=== PATIENT | female | born 1970 | race Caucasian/White ===

== ENCOUNTER 2017-06-02 12:23 | Outpatient (CLI) | payer SELFPAY | END 2017-06-02 12:24 | disposition critical access hospital (66) | LOC: EMS 12:23 | PROVIDERS: ATTEND Surgery | DX: R41.82 Altered mental status, unspecified (principal) | CPT/HCPCS: A0425; A0429 ==

== ENCOUNTER 2017-06-02 12:39 | Emergency (ER) | payer SELFPAY ==
[2017-06-02 14:34] LABS: BASOPHILS % (AUTO) 0.7 %; EOSINOPHILS % (AUTO) 0.6 %; HGB - HEMOGLOBIN 13.1 g/dL (12.0-16.0); LYMPHOCYTES # (AUTO) 1.6 10^3/uL (1.5-3.5); LYMPHOCYTES % (AUTO) 23.4 %; MEAN CORPUSCULAR HEMOGLOBIN 29.9 pg (27.0-31.0); MEAN CORPUSCULAR HGB CONC 33.5 g/dL (32.0-36.0); MEAN CORPUSCULAR VOLUME 89.3 fL (81.0-99.0); MEAN PLATELET VOLUME 8.1 fL (7.9-10.8); MONOCYTES # (AUTO) 0.3 10^3/uL (0.0-1.0); MONOCYTES % (AUTO) 4.8 %; NEUTROPHILS # (AUTO) 4.8 10^3/uL (1.5-6.6); NEUTROPHILS % (AUTO) 70.5 %; PLT - PLATELET COUNT 226 10^3/uL (130-450); RED BLOOD COUNT 4.37 10^6/uL (4.20-5.40); RED CELL DISTRIBUTION WIDTH 12.5 % (12.0-15.0); WHITE BLOOD COUNT 6.7 x10^3/uL (4.8-10.8)
[2017-06-02 14:47] LABS: ALBUMIN 4.6 g/dL (3.2-5.5); ALBUMIN/GLOBULIN RATIO 1.8 (1.0-2.2); BILIRUBIN,TOTAL 0.7 mg/dL (0.2-1.0); CALCIUM 9.1 mg/dL (8.5-10.3); CREATININE 0.6 mg/dL (0.4-1.0); TOTAL PROTEIN 7.1 g/dL (6.7-8.2)
[2017-06-02 14:51] LABS: MUDS CUTOFF CONCENTRATIONS CUTOFF CONC BELOW:
[2017-06-02 14:54] LABS: BILIRUBIN,URINE NEGATIVE (NEGATIVE); CLARITY,URINE CLEAR (CLEAR); GLUCOSE, URINE (UA) NEGATIVE (NEGATIVE); KETONES,URINE (UA) TRACE mg/dL (NEGATIVE); LEUKOCYTE ESTERASE, URINE TRACE (NEGATIVE); NITRITE,URINE NEGATIVE (NEGATIVE); OCCULT BLOOD,URINE TRACE-LYSE (NEGATIVE); PROTEIN,URINE NEGATIVE (NEGATIVE); UROBILINOGEN,URINE 0.2 (NORMAL) E.U./dL (NORMAL)
[2017-06-02 15:03] LABS: AMPHETAMINE SCREEN,URINE NEGATIVE (NEGATIVE); BENZODIAZEPINES SCREEN, URINE NEGATIVE (NEGATIVE); COCAINE SCREEN URINE NEGATIVE (NEGATIVE); METHADONE SCREEN, URINE NEGATIVE (NEGATIVE); METHAMPHETAMINES SCREEN, URINE NEGATIVE (NEGATIVE); OPIATE SCREEN, URINE NEGATIVE (NEGATIVE); OXYCODONE SCREEN, URINE NEGATIVE (NEGATIVE); PROPOXYPHENE SCREEN, URINE NEGATIVE (NEGATIVE); TRICYCLIC ANTIDEPRESSANT,URINE NEGATIVE (NEGATIVE)
[2017-06-02 15:07] LABS: RBC,URINE 0-5 /HPF (0-5); SQUAMOUS EPITHELIAL CELL,UR MANY Squamous (<= Few); WBC CLUMPS,URINE PRESENT
[2017-06-02 15:08] LABS: BACTERIA,URINE Few /HPF (None Seen); MUCUS,URINE Marked Strands
[2017-06-02] MEDS ORDERED: GENTAMICIN 0.3% OPHTH DROPS EACHEYE STA (16:32)
--- NOTE | 2017-06-02 18:03 | ED Physician Documentation ---
History of Present Illness - Stated complaint Stated Complaint: GOOPY EYES, AMS - Chief complaint Chief Complaint: General - History obtained from History obtained from: Patient, Friend (significant other) - History of Present Illness Timing: How many weeks ago (2) - Additonal information Additional information: The patient is a 46 year-old female who arrives via ambulance for evaluation of "goopy eyes" and mental status evaluation. History is not able to be reliably obtained from the patient, and is obtained mostly from her significant other of many years. The patient has had purulent drainage from her eyes for about two weeks, increasing over that time. She denies visual impairment. In addition, the patient has exhibited signs of mental deterioration, increasing in severity over the past two years or more. Her male partner states their relationship has become one of him being a steam room attendant. He has been in contact with mental health services who have told him they cannot hospital the patient unless she is gravely disabled or a harm to herself or others, and he states she is not willing to seek voluntary evaluation or treatment. In discussion with the patient, she is unable to respond with focus to any specific question that is asked. She denies any health concerns, and seems unable to comprehend simple questions, responding with unrelated random thoughts. Review of Systems Constitutional: denies: Fever Eyes: reports: Discharge. denies: Decreased vision, Photophobia Ears: denies: Ear pain Nose: denies: Congestion Throat: denies: Sore throat Cardiac: denies: Chest pain / pressure Respiratory: denies: Dyspnea, Cough GI: denies: Abdominal Pain, Nausea, Vomiting : denies: Dysuria Skin: denies: Rash Musculoskeletal: denies: Back pain, Extremity pain Neurologic: reports: Confused. denies: Focal weakness, Numbness, Headache Psychiatric: denies: Suicidal, Homicidal, Hallucinations PD PAST MEDICAL HISTORY - Past Medical History Past Medical History: No Cardiovascular: None Respiratory: None Neuro: None Endocrine/Autoimmune: None Other Past Medical History: Pt not reliable source for PMH - Present Medications Home Medications: Ambulatory Orders Medication Instructions Recorded Confirmed No Known Home Medications [No 06/02/17 06/02/17 Known Home Medications] - Allergies Allergies/Adverse Reactions: Allergies Allergy/AdvReac Type Severity Reaction Status Date / Time Penicillins Allergy Unknown Verified 06/02/17 13:03 - Living Situation Living Situation: reports: With spouse/s.o. Living Arrangement: reports: At home - Social History Does the pt smoke?: No Smoking Status: Never smoker Does the pt drink ETOH?: No Does the pt have substance abuse?: No PD ED PE NORMAL - Vitals Vital signs reviewed: Yes (normal) - General General: Alert and oriented X 3, Well developed/nourished, Other (Calm, well- groomed, but cognitively confused.) - HEENT HEENT: Atraumatic, PERRL, EOMI, Moist mucous membranes, Pharynx benign, Other ( Erythematous conjunctivae bilaterally, with purulent drainage.) - Neck Neck: Supple, no meningeal sign, No adenopathy - Cardiac Cardiac: RRR, No murmur - Respiratory Respiratory: No respiratory distress, Clear bilaterally - Abdomen Abdomen: Soft, Non tender, Other (Scaphoid abdomen.) - Back Back: No CVA TTP - Derm Derm: No rash - Extremities Extremities: No edema, No calf tenderness / cord - Neuro Neuro: Alert and oriented X 3, No motor deficit, No sensory deficit Eye Opening: Spontaneous Motor: Obeys Commands Verbal: Confused GCS Score: 14 PD ED PE EXPANDED - Psych Psych: Other (Responses are unrelated to questions asked, and are random, disorganized thoughts.) Results - Vitals Vitals: Oxygen O2 Source Room air - Labs Labs: Laboratory Tests 06/02/17 06/02/17 06/02/17 14:22 14:22 14:45 WBC 6.7 RBC 4.37 Hgb 13.1 Hct 39.0 MCV 89.3 MCH 29.9 MCHC 33.5 RDW 12.5 Plt Count 226 MPV 8.1 Neut # 4.8 Lymph # 1.6 [place] # 0.3 Eos # 0.0 Baso # 0.0 Absolute Nucleated RBC 0.00 Nucleated RBC % 0.0 Sodium 136 Potassium 3.7 Chloride 106 Carbon Dioxide 22 Anion Gap 8.0 BUN 21 H Creatinine 0.6 Estimated GFR (MDRD) 107 Glucose 98 Calcium 9.1 Total Bilirubin 0.7 AST 19 ALT 19 Alkaline Phosphatase 35 L Total Protein 7.1 Albumin 4.6 Globulin 2.5 Albumin/Globulin Ratio 1.8 Lipase 26 Urine Color YELLOW Urine Clarity CLEAR Urine pH 6.0 Ur Specific [place] 1.025 Urine Protein NEGATIVE Urine Glucose (UA) NEGATIVE Urine Ketones TRACE Urine Occult Blood TRACE-LYSE Urine Nitrite NEGATIVE Urine Bilirubin NEGATIVE Urine Urobilinogen 0.2 (NORMAL) Ur Leukocyte Esterase TRACE H Urine RBC 0-5 Urine WBC 6-10 H Urine WBC Clumps PRESENT Ur Squamous Epith Cells MANY Squamous H Urine Bacteria Few Urine Mucus Marked Strands Ur Microscopic Review INDICATED Urine Culture Comments NOT INDICATED Urine Opiates Screen NEGATIVE Ur Oxycodone Screen NEGATIVE Urine Methadone Screen NEGATIVE Ur Propoxyphene Screen NEGATIVE Ur Barbiturates Screen NEGATIVE Ur Tricyclics Screen NEGATIVE Ur Phencyclidine Scrn NEGATIVE Ur Amphetamine Screen NEGATIVE U Methamphetamines Scrn NEGATIVE U Benzodiazepines Scrn NEGATIVE Urine Cocaine Screen NEGATIVE U Cannabinoids Screen NEGATIVE PD MEDICAL DECISION MAKING - ED course Complexity details: reviewed results, re-evaluated patient, considered differential, d/w patient, d/w family ED course: The patient's presentation is significant for bilateral conjunctivitis, and for mental status impairment, suggestive of early dementia. Her mental status impairment is not acute, but has been gradually progressive over years. She does not appear to be a harm to herself or others, but is approaching grave disability. She was evaluated by the Cash Shortage Investigator, who was unable to convince the patient to seek outpatient care, and who does not consider the patient gravely disabled to the point of needing involuntary hospitalization. There is no medical condition necessitating hospitalization. Her CBC, chemistry panel, urinalysis, and urine tox screen are all normal. Treatment in the Emergency Department included administration of Gentamicin ophthalmic solution in each eye. The remainder of the bottle is dispensed for further treatment at home. I discussed with the patient and her male foreign clerk the diagnosis, recommended primary care follow up, and discussed potentially worrisome signs or symptoms that should prompt reevaluation in the Emergency Department. Departure - Departure Disposition: 01 Home, Self Care Clinical Impression: Mental impairment Bilateral conjunctivitis Qualifiers: Conjunctivitis type: unspecified Qualified Code(s): H10.9 - Unspecified conjunctivitis Condition: Stable Instructions: ED Conjunctivitis Nonspecific Follow-Up: [facility] [Provider Group] [facility] [Provider Group] [facility] [Provider Group] Comments: Instill gentamicin ophthalmic solution 2 drops in each eye 4 times daily for the next 3 days. Follow-up with primary physician. Call to schedule next available appointment. Return to the emergency department if increasing eye drainage or otherwise worsening symptoms. Discharge Date/Time: 06/02/17 18:19
[2017-06-02 18:14] VITALS: BP 122/65
== END 2017-06-02 18:19 | disposition home or self-care (01) ==
LOC: ED 12:39
DX: R41.82 Altered mental status, unspecified (principal); H10.9 Unspecified conjunctivitis
CPT/HCPCS: 36415; 80053; 80306; 81001; 83690; 85025; 99283; A9270; 81003; 87086

== ENCOUNTER 2018-03-08 12:11 | Emergency (ER) | payer SELFPAY ==
--- NOTE | 2018-03-08 12:29 | ED Physician Documentation ---
PD HPI MHE - Stated complaint Stated Complaint: MHE - History obtained from History obtained from: Patient, Police - History of Present Illness Primary symptom: Psychosis Timing - onset: Unknown Pain level max: 0 Pain level now: 0 - Additional information Additional information: Patient is a 47-year-old female who is brought to the emergency department by police on an involuntary mental health hold by the [facility]. She is brought here for medical clearance. She is unable to give any history. She does state that she is not on any medications and has no allergies. She states she was brought here because she is not eating enough food. Review of Systems Unable to obtain: Confused Constitutional: denies: Fever Neurologic: denies: Head injury PD PAST MEDICAL HISTORY - Past Medical History Cardiovascular: None Respiratory: None Endocrine/Autoimmune: None - Present Medications Home Medications: Ambulatory Orders Medication Instructions Recorded Confirmed No Known Home Medications 06/02/17 06/02/17 - Allergies Allergies/Adverse Reactions: Allergies Allergy/AdvReac Type Severity Reaction Status Date / Time Penicillins Allergy Unknown Verified 03/08/18 12:29 - Social History Does the pt smoke?: No Smoking Status: Never smoker Does the pt drink ETOH?: No Does the pt have substance abuse?: No PD ED PE NORMAL - Vitals Vital signs reviewed: Yes - General General: No acute distress, Other (Alert, oriented to person and place. Slow to respond to questions. Seems to be responding to internal stimuli) - HEENT HEENT: Moist mucous membranes, Pharynx benign, Other (R eye injected conjunctiva and yellow drainage.) - Neck Neck: Supple, no meningeal sign - Cardiac Cardiac: RRR, Strong equal pulses - Respiratory Respiratory: No respiratory distress, Clear bilaterally - Abdomen Abdomen: Soft, Non tender, Non distended - Derm Derm: Warm and dry - Extremities Extremities: Normal ROM s pain - Neuro Neuro: No motor deficit, No sensory deficit Results - Vitals Vitals: Vital Signs - 24 hr 03/08/18 12:24 Temperature 37.7 C H Heart Rate 106 H Respiratory 15 Rate Blood Pressure 110/67 O2 Saturation 98 Oxygen O2 Source Room air - EKG (time done) 1319 Rate: Rate (enter#) (92) Rhythm: NSR [place]: Normal Intervals: Normal [place] QRS: Normal Ischemia: Normal ST segments - Labs Labs: Laboratory Tests 03/08/18 03/08/18 03/08/18 12:30 12:30 12:30 WBC 5.2 RBC 4.31 Hgb 13.0 Hct 38.5 MCV 89.3 MCH 30.2 MCHC 33.8 RDW 13.5 Plt Count 238 MPV 8.5 Neut # (Auto) 3.2 Lymph # (Auto) 1.5 [place] # (Auto) 0.4 Eos # (Auto) 0.0 Baso # (Auto) 0.1 Absolute Nucleated RBC 0.00 Nucleated RBC % 0.0 Sodium 139 Potassium 3.5 Chloride 105 Carbon Dioxide 25 Anion Gap 9.0 BUN 26 H Creatinine 0.6 Estimated GFR (MDRD) 106 Glucose 122 H Calcium 9.0 Total Bilirubin 0.7 AST 19 ALT 16 Alkaline Phosphatase 41 L Total Protein 7.4 Albumin 4.7 Globulin 2.7 Albumin/Globulin Ratio 1.7 Lipase 38 TSH 1.37 Urine Color Urine Clarity Urine pH Ur Specific [employer] Urine Protein Urine Glucose (UA) Urine Ketones Urine Occult Blood Urine Nitrite Urine Bilirubin Urine Urobilinogen Ur Leukocyte Esterase Ur Microscopic Review Urine Culture Comments Urine HCG, Qual Salicylates < 6.0 Urine Opiates Screen Ur Oxycodone Screen Urine Methadone Screen Ur Propoxyphene Screen Acetaminophen < 10 L Ur Barbiturates Screen Ur Tricyclics Screen Ur Phencyclidine Scrn Ur Amphetamine Screen U Methamphetamines Scrn U Benzodiazepines Scrn Urine Cocaine Screen U Cannabinoids Screen Ethyl Alcohol < 5.0 03/08/18 03/08/18 14:15 14:15 WBC RBC Hgb Hct MCV MCH MCHC RDW Plt Count MPV Neut # (Auto) Lymph # (Auto) [place] # (Auto) Eos # (Auto) Baso # (Auto) Absolute Nucleated RBC Nucleated RBC % Sodium Potassium Chloride Carbon Dioxide Anion Gap BUN Creatinine Estimated GFR (MDRD) Glucose Calcium Total Bilirubin AST ALT Alkaline Phosphatase Total Protein Albumin Globulin Albumin/Globulin Ratio Lipase TSH Urine Color YELLOW Urine Clarity CLEAR Urine pH >=9.0 H Ur Specific [employer] [place] 1.015 Urine Protein NEGATIVE Urine Glucose (UA) NEGATIVE Urine Ketones TRACE Urine Occult Blood NEGATIVE Urine Nitrite NEGATIVE Urine Bilirubin NEGATIVE Urine Urobilinogen 1 (NORMAL) Ur Leukocyte Esterase NEGATIVE Ur Microscopic Review NOT INDICATED Urine Culture Comments NOT INDICATED Urine HCG, Qual NEGATIVE Salicylates Urine Opiates Screen NEGATIVE Ur Oxycodone Screen NEGATIVE Urine Methadone Screen NEGATIVE Ur Propoxyphene Screen NEGATIVE Acetaminophen Ur Barbiturates Screen NEGATIVE Ur Tricyclics Screen NEGATIVE Ur Phencyclidine Scrn NEGATIVE Ur Amphetamine Screen NEGATIVE U Methamphetamines Scrn NEGATIVE U Benzodiazepines Scrn NEGATIVE Urine Cocaine Screen NEGATIVE U Cannabinoids Screen NEGATIVE Ethyl Alcohol PD MEDICAL DECISION MAKING - ED course Complexity details: reviewed results, re-evaluated patient, considered differential, d/w patient, d/w family, d/w internet marketing consultant ED course: 47-year-old female with psychosis today. Medically clear for psychiatric care. Seen by the [facility] Shirin Byers who detained the patient. She will be sent to Dr. Aye Rico Graciously accepts in transfer. [employer] forms filled out. She will need to be on Polytrim ophthalmic 1 drop in the right eye every 3 hours while awake for 7 days for her bacterial conjunctivitis. This document was made in part using voice recognition software. While efforts are made to proofread this document, sound alike and grammatical errors may occur. Departure - Departure Disposition: 65 Psych Hosp/Unit DC/Xfer Clinical Impression: Bacterial conjunctivitis of right eye Psychosis Qualifiers: Psychosis type: unspecified psychosis type Qualified Code(s): F29 - Unspecified psychosis not due to a substance or known physiological condition Condition: Stable
[2018-03-08 12:43] LABS: BASOPHILS # (AUTO) 0.1 10^3/uL (0.0-0.1); EOSINOPHILS % (AUTO) 0.6 %; LYMPHOCYTES # (AUTO) 1.5 10^3/uL (1.5-3.5); LYMPHOCYTES % (AUTO) 28.6 %; MEAN CORPUSCULAR HEMOGLOBIN 30.2 pg (27.0-31.0); MEAN CORPUSCULAR HGB CONC 33.8 g/dL (32.0-36.0); MEAN CORPUSCULAR VOLUME 89.3 fL (81.0-99.0); MEAN PLATELET VOLUME 8.5 fL (7.9-10.8); MONOCYTES # (AUTO) 0.4 10^3/uL (0.0-1.0); MONOCYTES % (AUTO) 8.3 %; NEUTROPHILS # (AUTO) 3.2 10^3/uL (1.5-6.6); NEUTROPHILS % (AUTO) 61.5 %; PLT - PLATELET COUNT 238 10^3/uL (130-450); RED BLOOD COUNT 4.31 10^6/uL (4.20-5.40); RED CELL DISTRIBUTION WIDTH 13.5 % (12.0-15.0); WHITE BLOOD COUNT 5.2 x10^3/uL (4.8-10.8)
[2018-03-08 12:55] LABS: ACETAMINOPHEN < 10 ug/mL (10-30); ALBUMIN 4.7 g/dL (3.2-5.5); ALBUMIN/GLOBULIN RATIO 1.7 (1.0-2.2); ALKALINE PHOSPHATASE 41 IU/L (42-121); ALT ALANINE AMINOTRANSFERASE 16 IU/L (10-60); AST ASPARTATE AMINOTRANSFERASE 19 IU/L (10-42); BILIRUBIN,TOTAL 0.7 mg/dL (0.2-1.0); BUN - BLOOD UREA NITROGEN 26 mg/dL (6-20); CARBON DIOXIDE - CO2 25 mmol/L (21-32); CHLORIDE 105 mmol/L (101-111); CREATININE 0.6 mg/dL (0.4-1.0); GFR - MDRD 106 (>89); GLUCOSE 122 mg/dL (70-100); LIPASE 38 U/L (22-51); SALICYLATE < 6.0 mg/dL; SODIUM 139 mmol/L (135-145); TOTAL PROTEIN 7.4 g/dL (6.7-8.2)
[2018-03-08] MEDS ORDERED: OLANZapine ODT 5 MG TABLET TL ONE (14:22)
[2018-03-08 14:25] LABS: MUDS CUTOFF CONCENTRATIONS CUTOFF CONC BELOW:
[2018-03-08 14:31] LABS: BILIRUBIN,URINE NEGATIVE (NEGATIVE); GLUCOSE, URINE (UA) NEGATIVE (NEGATIVE); KETONES,URINE (UA) TRACE mg/dL (NEGATIVE); LEUKOCYTE ESTERASE, URINE NEGATIVE (NEGATIVE); NITRITE,URINE NEGATIVE (NEGATIVE); OCCULT BLOOD,URINE NEGATIVE (NEGATIVE); PH,URINE >=9.0 PH (5.0-7.5); PROTEIN,URINE NEGATIVE (NEGATIVE); UROBILINOGEN,URINE 1 (NORMAL) E.U./dL (NORMAL)
[2018-03-08 14:40] LABS: AMPHETAMINE SCREEN,URINE NEGATIVE (NEGATIVE); BENZODIAZEPINES SCREEN, URINE NEGATIVE (NEGATIVE); COCAINE SCREEN URINE NEGATIVE (NEGATIVE); METHADONE SCREEN, URINE NEGATIVE (NEGATIVE); METHAMPHETAMINES SCREEN, URINE NEGATIVE (NEGATIVE); OPIATE SCREEN, URINE NEGATIVE (NEGATIVE); OXYCODONE SCREEN, URINE NEGATIVE (NEGATIVE); PROPOXYPHENE SCREEN, URINE NEGATIVE (NEGATIVE); TRICYCLIC ANTIDEPRESSANT,URINE NEGATIVE (NEGATIVE)
[2018-03-08 14:43] LABS: CLARITY,URINE CLEAR (CLEAR); HCG UR QUAL NEGATIVE
[2018-03-08] MEDS ORDERED: POLYMYXIN B/TRIMETH OPHTH DROPS RIGHTEYE STA (15:14)
[2018-03-08] MEDS ORDERED: OLANZapine 10 MG VIAL IM STA (17:03)
[2018-03-08 19:17] VITALS: BP 139/80
== END 2018-03-08 19:30 ==
LOC: EDUNIT# → ED 12:11
DX: Z04.6 Encounter for general psychiatric examination, requested by authority (principal); F29 Unspecified psychosis not due to a substance or known physiological condition; H10.89 Other conjunctivitis; B96.89 Other specified bacterial agents as the cause of diseases classified elsewhere
CPT/HCPCS: 36415; 80053; 80306; 80307; 80320; 80329; 81003; 81025; 83690; 84443; 85025; 93005; 99283; 99284; A9270; 81001; 87086

== ENCOUNTER 2019-04-27 06:46 | Outpatient (CLI) | payer SELFPAY | END 2019-04-27 06:47 | disposition critical access hospital (66) | LOC: EMS 06:46 | PROVIDERS: ATTEND Surgery | DX: R46.89 Other symptoms and signs involving appearance and behavior (principal); R41.82 Altered mental status, unspecified | CPT/HCPCS: A0425; A0429 ==

== ENCOUNTER 2019-04-27 07:01 | Emergency (ER) | payer SELFPAY ==
[2019-04-27] MEDS ORDERED: NEOMYCIN/POLYMYX/DEXAMETH OPHTH DROPS 5 ML EACHEYE STA (07:19)
--- NOTE | 2019-04-27 07:23 | ED Physician Documentation ---
PD HPI MHE - Stated complaint Stated Complaint: MHE - Chief complaint Chief Complaint: MHE - History obtained from History obtained from: Patient, EMS, Other ([facility]) - History of Present Illness Primary symptom: Psychosis, Off meds Timing - onset: How many years ago (1) Contributing factors: Off meds Similar symptoms before: Diagnosis (schizoeffective) Recently seen: Not recently seen - Additional information Additional information: 48-year-old female with history of schizoaffective disorder has been off of her meds for about 1 year and she has had increasing psychosis and multiple telephone calls to law enforcement especially over the past 2 weeks. The gallo sampson is brought to the hospital this morning by medics and restraint.She does have some conjunctival irritation that is been present for some time. She indicates she was planning to pick pack worker her medications today. Review of Systems Constitutional: denies: Fever Eyes: reports: Discharge, Irritation. denies: Decreased vision Ears: denies: Ear pain Nose: denies: Rhinorrhea / runny nose, Congestion Throat: denies: Sore throat Cardiac: denies: Chest pain / pressure, Palpitations Respiratory: denies: Dyspnea, Cough GI: denies: Abdominal Pain, Nausea, Vomiting : denies: Dysuria, Frequency PD PAST MEDICAL HISTORY - Past Medical History Cardiovascular: None Respiratory: None Endocrine/Autoimmune: None - Present Medications Home Medications: Ambulatory Orders Medication Instructions Recorded Confirmed No Known Home Medications 06/02/17 06/02/17 - Allergies Allergies/Adverse Reactions: Allergies Allergy/AdvReac Type Severity Reaction Status Date / Time Penicillins Allergy Unknown Verified 03/08/18 12:29 - Social History Does the pt smoke?: No Smoking Status: Never smoker Does the pt drink ETOH?: No Does the pt have substance abuse?: No PD ED PE NORMAL - Vitals Vital signs reviewed: Yes (normal ) - General General: No acute distress, Well developed/nourished, Other (The patient has a broad smile and is interactive with pressured speech that is tangential and circumferential. ) - HEENT HEENT: Atraumatic, PERRL, EOMI, Ears normal, Other (mucuos membranes are dry. There is scleral injection and conjunctival exudate and inflamation consistent with acute bacterial conjunctivitis. ) - Neck Neck: Supple, no meningeal sign, No bony TTP - Cardiac Cardiac: RRR, No murmur - Respiratory Respiratory: No respiratory distress, Clear bilaterally - Abdomen Abdomen: Soft, Non tender - Back Back: No CVA TTP, No spinal TTP - Derm Derm: Normal color, Warm and dry, No rash - Extremities Extremities: No deformity, No edema, No calf tenderness / cord - Neuro Neuro: slab conditioner supervisor 2-12 intact, No motor deficit, Normal speech Eye Opening: Spontaneous Motor: Obeys Commands Verbal: Oriented GCS Score: 15 - Psych Psych: Normal mood, Normal affect Results - Vitals Vitals: Vital Signs - 24 hr 04/27/19 04/27/19 04/27/19 07:02 10:52 11:08 Temperature 37.3 C Heart Rate 89 Respiratory 18 Rate Blood Pressure 113/49 L 115/49 L 111/58 L O2 Saturation 100 04/27/19 14:20 Temperature 36.7 C Heart Rate 101 H Respiratory 15 Rate Blood Pressure 138/72 H O2 Saturation 100 Oxygen O2 Source Room air - EKG (time done) 1004 Rate: Rate (enter#) (90) Rhythm: NSR Compare to prior EKG: Unchanged from prior EKG (SPT 03-08-2018 no sig change) Computer interpretation: Agree with computer - Labs Labs: Laboratory Tests 04/27/19 04/27/19 04/27/19 07:26 07:26 07:26 WBC 4.9 RBC 4.28 Hgb 12.7 Hct 38.9 MCV 90.9 MCH 29.7 MCHC 32.6 RDW 12.1 Plt Count 236 MPV 10.0 Neut # (Auto) 2.9 Lymph # (Auto) 1.4 L [place] # (Auto) 0.4 Eos # (Auto) 0.1 Baso # (Auto) 0.0 Absolute Nucleated RBC 0.00 Nucleated RBC % 0.0 Sodium 143 Potassium 3.7 Chloride 107 Carbon Dioxide 26 Anion Gap 10.0 BUN 22 H Creatinine 0.7 Estimated GFR (MDRD) 89 Glucose 114 H Calcium 9.5 Total Bilirubin 0.6 AST 21 ALT 19 Alkaline Phosphatase 38 L Total Protein 7.3 Albumin 4.7 Globulin 2.6 Albumin/Globulin Ratio 1.8 Lipase 56 H TSH 1.40 Urine Color Urine Clarity Urine pH Ur Specific [place] Urine Protein Urine Glucose (UA) Urine Ketones Urine Occult Blood Urine Nitrite Urine Bilirubin Urine Urobilinogen Ur Leukocyte Esterase Ur Microscopic Review Urine Culture Comments Urine HCG, Qual Urine Opiates Screen Ur Oxycodone Screen Urine Methadone Screen Ur Propoxyphene Screen Acetaminophen < 10 L Ur Barbiturates Screen Ur Tricyclics Screen Ur Phencyclidine Scrn Ur Amphetamine Screen U Methamphetamines Scrn U Benzodiazepines Scrn Urine Cocaine Screen U Cannabinoids Screen Ethyl Alcohol < 5.0 04/27/19 04/27/19 08:00 08:00 WBC RBC Hgb Hct MCV MCH MCHC RDW Plt Count MPV Neut # (Auto) Lymph # (Auto) [place] # (Auto) Eos # (Auto) Baso # (Auto) Absolute Nucleated RBC Nucleated RBC % Sodium Potassium Chloride Carbon Dioxide Anion Gap BUN Creatinine Estimated GFR (MDRD) Glucose Calcium Total Bilirubin AST ALT Alkaline Phosphatase Total Protein Albumin Globulin Albumin/Globulin Ratio Lipase TSH Urine Color YELLOW Urine Clarity CLEAR Urine pH 6.5 Ur Specific [place] 1.025 Urine Protein NEGATIVE Urine Glucose (UA) NEGATIVE Urine Ketones NEGATIVE Urine Occult Blood TRACE-LYSE Urine Nitrite NEGATIVE Urine Bilirubin NEGATIVE Urine Urobilinogen 0.2 (NORMAL) Ur Leukocyte Esterase NEGATIVE Ur Microscopic Review NOT INDICATED Urine Culture Comments NOT INDICATED Urine HCG, Qual NEGATIVE Urine Opiates Screen NEGATIVE Ur Oxycodone Screen NEGATIVE Urine Methadone Screen NEGATIVE Ur Propoxyphene Screen NEGATIVE Acetaminophen Ur Barbiturates Screen NEGATIVE Ur Tricyclics Screen NEGATIVE Ur Phencyclidine Scrn NEGATIVE Ur Amphetamine Screen NEGATIVE U Methamphetamines Scrn NEGATIVE U Benzodiazepines Scrn NEGATIVE Urine Cocaine Screen NEGATIVE U Cannabinoids Screen NEGATIVE Ethyl Alcohol PD MEDICAL DECISION MAKING - ED course Complexity details: reviewed old records, reviewed results, re-evaluated patient, considered differential, d/w patient ED course: 48 y/o female with obvious psychosis is accepted at [facility] and she is administered zyprexa 5mg TL prior to travel. Departure - Departure Disposition: 65 Psych Hosp/Unit DC/Xfer Clinical Impression: Psychosis Qualifiers: Psychosis type: schizoaffective disorder Schizoaffective disorder type: bipolar Qualified Code(s): F25.0 - Schizoaffective disorder, bipolar type Condition: Stable Discharge Date/Time: 04/27/19 14:40
[2019-04-27 07:31] LABS: BASOPHILS % (AUTO) 0.8 %; EOSINOPHILS # (AUTO) 0.1 10^3/uL (0.0-0.7); HGB - HEMOGLOBIN 12.7 g/dL (12.0-16.0); LYMPHOCYTES # (AUTO) 1.4 10^3/uL (1.5-3.5); LYMPHOCYTES % (AUTO) 29.4 %; MEAN CORPUSCULAR HEMOGLOBIN 29.7 pg (27.0-31.0); MEAN CORPUSCULAR HGB CONC 32.6 g/dL (32.0-36.0); MEAN CORPUSCULAR VOLUME 90.9 fL (81.0-99.0); MONOCYTES # (AUTO) 0.4 10^3/uL (0.0-1.0); MONOCYTES % (AUTO) 7.8 %; NEUTROPHILS # (AUTO) 2.9 10^3/uL (1.5-6.6); NEUTROPHILS % (AUTO) 59.6 %; PLT - PLATELET COUNT 236 10^3/uL (130-450); RED BLOOD COUNT 4.28 10^6/uL (4.20-5.40); RED CELL DISTRIBUTION WIDTH 12.1 % (12.0-15.0); WHITE BLOOD COUNT 4.9 x10^3/uL (4.8-10.8)
[2019-04-27 07:48] LABS: ACETAMINOPHEN < 10 ug/mL (10-30); ALBUMIN 4.7 g/dL (3.2-5.5); ALBUMIN/GLOBULIN RATIO 1.8 (1.0-2.2); ALKALINE PHOSPHATASE 38 IU/L (42-121); ALT ALANINE AMINOTRANSFERASE 19 IU/L (10-60); AST ASPARTATE AMINOTRANSFERASE 21 IU/L (10-42); BILIRUBIN,TOTAL 0.6 mg/dL (0.2-1.0); BUN - BLOOD UREA NITROGEN 22 mg/dL (6-20); CALCIUM 9.5 mg/dL (8.5-10.3); CARBON DIOXIDE - CO2 26 mmol/L (21-32); CHLORIDE 107 mmol/L (101-111); CREATININE 0.7 mg/dL (0.4-1.0); GFR - MDRD 89 (>89); GLUCOSE 114 mg/dL (70-100); LIPASE 56 U/L (22-51); SODIUM 143 mmol/L (135-145); TOTAL PROTEIN 7.3 g/dL (6.7-8.2)
[2019-04-27 08:03] LABS: MUDS CUTOFF CONCENTRATIONS CUTOFF CONC BELOW:
[2019-04-27 08:06] LABS: BILIRUBIN,URINE NEGATIVE (NEGATIVE); CLARITY,URINE CLEAR (CLEAR); GLUCOSE, URINE (UA) NEGATIVE (NEGATIVE); KETONES,URINE (UA) NEGATIVE (NEGATIVE); LEUKOCYTE ESTERASE, URINE NEGATIVE (NEGATIVE); NITRITE,URINE NEGATIVE (NEGATIVE); OCCULT BLOOD,URINE TRACE-LYSE (NEGATIVE); PH,URINE 6.5 PH (5.0-7.5); PROTEIN,URINE NEGATIVE (NEGATIVE); UROBILINOGEN,URINE 0.2 (NORMAL) E.U./dL (NORMAL)
[2019-04-27 08:07] LABS: HCG UR QUAL NEGATIVE
[2019-04-27 08:15] LABS: AMPHETAMINE SCREEN,URINE NEGATIVE (NEGATIVE); BENZODIAZEPINES SCREEN, URINE NEGATIVE (NEGATIVE); COCAINE SCREEN URINE NEGATIVE (NEGATIVE); METHADONE SCREEN, URINE NEGATIVE (NEGATIVE); METHAMPHETAMINES SCREEN, URINE NEGATIVE (NEGATIVE); OPIATE SCREEN, URINE NEGATIVE (NEGATIVE); OXYCODONE SCREEN, URINE NEGATIVE (NEGATIVE); TRICYCLIC ANTIDEPRESSANT,URINE NEGATIVE (NEGATIVE)
[2019-04-27 08:16] LABS: PROPOXYPHENE SCREEN, URINE NEGATIVE (NEGATIVE)
[2019-04-27 14:21] VITALS: BP 138/72
[2019-04-27] MEDS ORDERED: OLANZapine ODT 5 MG TABLET TL ONE (14:28)
== END 2019-04-27 14:40 ==
LOC: EDUNIT# → ED 07:01
DX: F25.0 Schizoaffective disorder, bipolar type (principal)
CPT/HCPCS: 36415; 80320; 81003; 81025; 83690; 93005; 99284; 99285; J3490; 80053; 80306; 80307; 81001; 84443; 85025; 87086

== ENCOUNTER 2019-08-13 21:52 | Outpatient (CLI) | payer SELFPAY | END 2019-08-13 23:59 | disposition critical access hospital (66) | LOC: EMS 21:52 | PROVIDERS: ATTEND Surgery | DX: R46.89 Other symptoms and signs involving appearance and behavior (principal) | CPT/HCPCS: A0425; A0429 ==

== ENCOUNTER 2019-08-13 22:17 | Emergency (ER) | payer SELFPAY ==
--- NOTE | 2019-08-13 23:29 | ED Physician Documentation ---
PD HPI MHE - Stated complaint Stated Complaint: MHE - Chief complaint Chief Complaint: Heent - History obtained from History obtained from: EMS, Police - History of Present Illness Primary symptom: Aggressive behavior Timing - onset: Today (ton) - Additional information Additional information: medics state patient was in front of a place of [place] (veterinary clinic), lying on ground, and was asked to move. patient became belligerent with police to the point that they called EMS and restraints were used for patients and others safety. patient apparently would not talk to EMS. Police filled out a form indicating they deemed her gravely disabled and required a mental health evaluation by a mental health professional. patient has been here three previous times, with previous visits resulting in transfer to psychiatric care facilities. PLEASE NOTE that patient would not talk to me during HPI, ROS and thus I could not gather this information from patient. she was cooperative for exam. she was no longer in restraints when I evaluated her and it is not clear to me who untethered her restraints. Review of Systems Unable to obtain: Uncooperative PD PAST MEDICAL HISTORY - Past Medical History Cardiovascular: None Respiratory: None Endocrine/Autoimmune: None - Present Medications Home Medications: Ambulatory Orders Medication Instructions Recorded Confirmed No Known Home Medications 06/02/17 06/02/17 - Allergies Allergies/Adverse Reactions: Allergies Allergy/AdvReac Type Severity Reaction Status Date / Time Penicillins Allergy Unknown Verified 03/08/18 12:29 - Social History Does the pt smoke?: No Smoking Status: Never smoker Does the pt drink ETOH?: No Does the pt have substance abuse?: No PD ED PE NORMAL - Vitals Vital signs reviewed: Yes - General General: No acute distress, Other (cannot assess orientation, as she will not talk to me) - HEENT HEENT: PERRL, EOMI, Other (extensive, thick, yellow purulence bilaterally with crusting) - Neck Neck: Supple, no meningeal sign - Cardiac Cardiac: RRR, No murmur - Respiratory Respiratory: No respiratory distress, Clear bilaterally - Abdomen Abdomen: Soft, Non tender - Derm Derm: Normal color, Warm and dry - Extremities Extremities: No tenderness to palpate, Normal ROM s pain, No edema PD ED PE EXPANDED - General General: Disheveled, poorly kept - Psych Psych: Poor eye contact, Non verbal Results - Vitals Vitals: Oxygen O2 Source Room air PD MEDICAL DECISION MAKING - ED course Complexity details: reviewed old records, re-evaluated patient, considered differential ED course: brought in by procurement officer who has signed document in which he opines she is gravely disabled. patient refusing blood work. RN contacted [facility] for MHP consult, I was told by ED RN that they would call back regarding whether they would dispatch without blood work. Patient subsequently left ED before evaluation was complete. I was then made aware that ED RN had heard back from [facility] and they would not dispatch until 6 AM but that they opined patient could not be held in ED. I was also then made aware that ED RN had given patient her clothes and possessions back to patient. Departure - Departure Disposition: 07 Against Medical Advice Clinical Impression: Conjunctivitis Qualifiers: Conjunctivitis type: acute Acute conjunctivitis type: bacterial Laterality: bilateral Qualified Code(s): H10.33 - Unspecified acute conjunctivitis, bilateral Condition: Stable Discharge Date/Time: 08/14/19 05:48
[2019-08-14 04:19] VITALS: BP 113/62
== END 2019-08-14 05:48 | disposition left against medical advice (07) ==
LOC: EDUNIT# → EDBD → ED 22:17
DX: H10.33 Unspecified acute conjunctivitis, bilateral (principal); Z53.20 Procedure and treatment not carried out because of patient's decision for unspecified reasons
CPT/HCPCS: 80048; 80307; 80320; 80329; 84443; 85025; 99281; 99283

== ENCOUNTER 2019-08-15 15:40 | Emergency (ER) | payer SELFPAY ==
[2019-08-15 16:02] LABS: BASOPHILS % (AUTO) 0.5 %; EOSINOPHILS # (AUTO) 0.2 10^3/uL (0.0-0.7); HGB - HEMOGLOBIN 13.1 g/dL (12.0-16.0); LYMPHOCYTES # (AUTO) 2.3 10^3/uL (1.5-3.5); LYMPHOCYTES % (AUTO) 38.1 %; MEAN CORPUSCULAR HGB CONC 32.8 g/dL (32.0-36.0); MEAN CORPUSCULAR VOLUME 91.3 fL (81.0-99.0); MEAN PLATELET VOLUME 9.9 fL (7.9-10.8); MONOCYTES # (AUTO) 0.6 10^3/uL (0.0-1.0); MONOCYTES % (AUTO) 9.3 %; NEUTROPHILS % (AUTO) 48.9 %; PLT - PLATELET COUNT 256 10^3/uL (130-450); RED BLOOD COUNT 4.37 10^6/uL (4.20-5.40); RED CELL DISTRIBUTION WIDTH 12.4 % (12.0-15.0)
--- NOTE | 2019-08-15 16:11 | ED Physician Documentation ---
PD HPI MHE - Stated complaint Stated Complaint: MHE - Chief complaint Chief Complaint: MHE - History obtained from History obtained from: Police - History of Present Illness Primary symptom: Psychosis Timing - onset: Unknown Pain level max: 0 Pain level now: 0 - Additional information Additional information: Patient refuses to answer any questions. She is staring straight ahead. Not talking per police she was placed on an involuntary hold by the [facility] Pat Byers, no other history is available. Patient was apparently seen here yesterday for same. She left the emergency department. FABI was contacted twice during her emergency department stay and refused to dispatch the DCR both times. Review of Systems Unable to obtain: Uncooperative PD PAST MEDICAL HISTORY - Past Medical History Cardiovascular: None Respiratory: None Endocrine/Autoimmune: None - Present Medications Home Medications: Ambulatory Orders Medication Instructions Recorded Confirmed No Known Home Medications 06/02/17 06/02/17 - Allergies Allergies/Adverse Reactions: Allergies Allergy/AdvReac Type Severity Reaction Status Date / Time Penicillins Allergy Unknown Verified 03/08/18 12:29 - Social History Does the pt smoke?: No Smoking Status: Never smoker Does the pt drink ETOH?: No Does the pt have substance abuse?: No PD ED PE NORMAL - Vitals Vital signs reviewed: Yes - General General: No acute distress, Other (Thin female) - HEENT HEENT: Other (Drainage from the bilateral eyes with erythema.) - Neck Neck: Supple, no meningeal sign - Cardiac Cardiac: RRR - Respiratory Respiratory: No respiratory distress, Clear bilaterally - Abdomen Abdomen: Soft, Non tender, Non distended - Derm Derm: Warm and dry - Extremities Extremities: No edema - Neuro Neuro: Other (Alert, not responding to questions) Results - Vitals Vitals: Vital Signs - 24 hr 08/15/19 15:40 Temperature 36.2 C L Heart Rate 89 Respiratory 14 Rate Blood Pressure 144/76 H O2 Saturation 99 Oxygen O2 Source Room air - EKG (time done) 1601 Rate: Rate (enter#) (73) Rhythm: NSR [place]: Normal Intervals: Normal [place] QRS: Normal Ischemia: Normal ST segments - Labs Labs: Laboratory Tests 08/15/19 08/15/19 08/15/19 15:56 15:56 15:56 WBC 6.0 RBC 4.37 Hgb 13.1 Hct 39.9 MCV 91.3 MCH 30.0 MCHC 32.8 RDW 12.4 Plt Count 256 MPV 9.9 Neut # (Auto) 3.0 Lymph # (Auto) 2.3 [place] # (Auto) 0.6 Eos # (Auto) 0.2 Baso # (Auto) 0.0 Absolute Nucleated RBC 0.00 Nucleated RBC % 0.0 Sodium 138 Potassium 3.2 L Chloride 106 Carbon Dioxide 27 Anion Gap 5.0 L BUN 27 H Creatinine 0.7 Estimated GFR (MDRD) 88 L Glucose 129 H Calcium 8.7 Total Bilirubin 0.7 AST 19 ALT 22 Alkaline Phosphatase 42 Total Protein 7.1 Albumin 4.4 Globulin 2.7 Albumin/Globulin Ratio 1.6 Lipase 39 TSH 0.81 Urine Color Urine Clarity Urine pH Ur Specific [place] Urine Protein Urine Glucose (UA) Urine Ketones Urine Occult Blood Urine Nitrite Urine Bilirubin Urine Urobilinogen Ur Leukocyte Esterase Ur Microscopic Review Urine Culture Comments Urine HCG, Qual Salicylates < 6.0 Urine Opiates Screen Ur Oxycodone Screen Urine Methadone Screen Ur Propoxyphene Screen Acetaminophen < 10 L Ur Barbiturates Screen Ur Tricyclics Screen Ur Phencyclidine Scrn Ur Amphetamine Screen U Methamphetamines Scrn U Benzodiazepines Scrn Urine Cocaine Screen U Cannabinoids Screen Ethyl Alcohol < 5.0 08/15/19 08/15/19 16:28 16:28 WBC RBC Hgb Hct MCV MCH MCHC RDW Plt Count MPV Neut # (Auto) Lymph # (Auto) [place] # (Auto) Eos # (Auto) Baso # (Auto) Absolute Nucleated RBC Nucleated RBC % Sodium Potassium Chloride Carbon Dioxide Anion Gap BUN Creatinine Estimated GFR (MDRD) Glucose Calcium Total Bilirubin AST ALT Alkaline Phosphatase Total Protein Albumin Globulin Albumin/Globulin Ratio Lipase TSH Urine Color YELLOW Urine Clarity CLEAR Urine pH 6.0 Ur Specific [place] 1.025 Urine Protein NEGATIVE Urine Glucose (UA) NEGATIVE Urine Ketones NEGATIVE Urine Occult Blood TRACE-INTA Urine Nitrite NEGATIVE Urine Bilirubin NEGATIVE Urine Urobilinogen 0.2 (NORMAL) Ur Leukocyte Esterase NEGATIVE Ur Microscopic Review NOT INDICATED Urine Culture Comments NOT INDICATED Urine HCG, Qual NEGATIVE Salicylates Urine Opiates Screen NEGATIVE Ur Oxycodone Screen NEGATIVE Urine Methadone Screen NEGATIVE Ur Propoxyphene Screen NEGATIVE Acetaminophen Ur Barbiturates Screen NEGATIVE Ur Tricyclics Screen NEGATIVE Ur Phencyclidine Scrn NEGATIVE Ur Amphetamine Screen NEGATIVE U Methamphetamines Scrn NEGATIVE U Benzodiazepines Scrn NEGATIVE Urine Cocaine Screen NEGATIVE U Cannabinoids Screen NEGATIVE Ethyl Alcohol PD MEDICAL DECISION MAKING - ED course Complexity details: reviewed old records, reviewed results, re-evaluated imelda aguilar, considered differential, d/w patient, d/w field sales consultant ED course: Patient appears to be in an acutely psychotic state. Appears to be mostly catatonic at this time. Patient is medically clear for psychiatric care. Her symptoms appear consistent with schizophrenia. Unclear if this is a formal diagnosis in her past or not. 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 She remains mostly mute. She does not resist movement of her arms and limbs. Does not resist invasive procedures such as an IV start or catheterization. She stares blankly into space. I spoke with the DCR, Pat who evaluated the patient and will place the patient on an involuntary hold. Pat states that the roommate called her and states that the patient has not been showering for the past month, stopped taking all of her medications approximately a month ago and is wearing a metal salad bowl on her head. Patient was also started on Polytrim ophthalmic for her bilateral conjunctivitis. Recommend that she continue this for 7 days. This document was made in part using voice recognition software. While efforts are made to proofread this document, sound alike and grammatical errors may occu r Patient signed out to the oncoming emergency department physician awaiting final disposition. Departure - Departure Clinical Impression: Psychosis Qualifiers: Psychosis type: schizophrenia Schizophrenia type: catatonic schizophrenia Qualified Code(s): F20.2 - Catatonic schizophrenia Bilateral conjunctivitis Qualifiers: Conjunctivitis type: acute Acute conjunctivitis type: bacterial Qualified Code(s): H10.33 - Unspecified acute conjunctivitis, bilateral Condition: Stable
[2019-08-15 16:18] LABS: ACETAMINOPHEN < 10 ug/mL (10-30); ALBUMIN 4.4 g/dL (3.2-5.5); ALBUMIN/GLOBULIN RATIO 1.6 (1.0-2.2); ALKALINE PHOSPHATASE 42 IU/L (42-121); ALT ALANINE AMINOTRANSFERASE 22 IU/L (10-60); AST ASPARTATE AMINOTRANSFERASE 19 IU/L (10-42); BILIRUBIN,TOTAL 0.7 mg/dL (0.2-1.0); BUN - BLOOD UREA NITROGEN 27 mg/dL (6-20); CALCIUM 8.7 mg/dL (8.5-10.3); CARBON DIOXIDE - CO2 27 mmol/L (21-32); CHLORIDE 106 mmol/L (101-111); CREATININE 0.7 mg/dL (0.4-1.0); GLUCOSE 129 mg/dL (70-100); LIPASE 39 U/L (22-51); SALICYLATE < 6.0 mg/dL; SODIUM 138 mmol/L (135-145); TOTAL PROTEIN 7.1 g/dL (6.7-8.2)
[2019-08-15 16:40] LABS: BILIRUBIN,URINE NEGATIVE (NEGATIVE); GLUCOSE, URINE (UA) NEGATIVE (NEGATIVE); KETONES,URINE (UA) NEGATIVE (NEGATIVE); LEUKOCYTE ESTERASE, URINE NEGATIVE (NEGATIVE); NITRITE,URINE NEGATIVE (NEGATIVE); OCCULT BLOOD,URINE TRACE-INTA (NEGATIVE); PROTEIN,URINE NEGATIVE (NEGATIVE); UROBILINOGEN,URINE 0.2 (NORMAL) E.U./dL (NORMAL)
[2019-08-15 16:43] LABS: CLARITY,URINE CLEAR (CLEAR); HCG UR QUAL NEGATIVE; MUDS CUTOFF CONCENTRATIONS CUTOFF CONC BELOW:
[2019-08-15 16:50] LABS: AMPHETAMINE SCREEN,URINE NEGATIVE (NEGATIVE); BENZODIAZEPINES SCREEN, URINE NEGATIVE (NEGATIVE); COCAINE SCREEN URINE NEGATIVE (NEGATIVE); METHADONE SCREEN, URINE NEGATIVE (NEGATIVE); METHAMPHETAMINES SCREEN, URINE NEGATIVE (NEGATIVE); OPIATE SCREEN, URINE NEGATIVE (NEGATIVE); OXYCODONE SCREEN, URINE NEGATIVE (NEGATIVE); PROPOXYPHENE SCREEN, URINE NEGATIVE (NEGATIVE); TRICYCLIC ANTIDEPRESSANT,URINE NEGATIVE (NEGATIVE)
[2019-08-15 22:33] LABS: CALCIUM 8.9 mg/dL (8.5-10.3); CREATININE 0.7 mg/dL (0.4-1.0)
[2019-08-16] MEDS ORDERED: GENTAMICIN 0.3% OPHTH DROPS EACHEYE SCH (06:00)
[2019-08-16 06:34] VITALS: BP 116/70
[2019-08-16] MEDS: POLYMYXIN B/TRIMETH OPHTH DROPS EACHEYE SCH ×4 (08:00→08:07)
== END 2019-08-16 08:48 ==
LOC: EDUNIT# → ED 15:40
DX: F20.2 Catatonic schizophrenia (principal); H10.33 Unspecified acute conjunctivitis, bilateral
CPT/HCPCS: 36415; 80048; 80320; 80329; 81003; 81025; 83690; 93005; 99285; A9270; 80053; 80306; 80307; 81001; 84443; 85025; 87086

== ENCOUNTER 2020-07-30 13:37 | Emergency (ER) | payer SELFPAY ==
--- NOTE | 2020-07-30 13:50 | ED Physician Documentation ---
PD HPI MHE - Stated complaint Stated Complaint: MHE - Chief complaint Chief Complaint: MHE - History obtained from History obtained from: Patient (refuses to speak), Caregiver (Teacher, Chari), Police - History of Present Illness Primary symptom: Psychosis Pain level max: 0 Pain level now: 0 Contributing factors: Other (reportedly not taking medications) - Additional information Additional information: 50 year old female with a longstanding history of psychosis is brought into the emergency department by order of a home service consultant for a DCR "pickup". Reportedly the patient has not been taking care of herself, urinating and defecating on herself, wandering into neighbors houses and "acting psychotic". Patient refuses to cooperate with any part of the evaluation here, she did allow the nurses to undress her, draw blood and get a urine sample. She will not speak. Patient with underlying schizophrenia Review of Systems Constitutional: denies: Fever, Chills Respiratory: denies: Cough GI: denies: Nausea, Vomiting, Diarrhea Skin: denies: Rash Musculoskeletal: denies: Neck pain Neurologic: denies: Headache PD PAST MEDICAL HISTORY - Past Medical History Past Medical History: Yes Cardiovascular: None Respiratory: None Endocrine/Autoimmune: None Psych: Schizophrenia - Present Medications Home Medications: Ambulatory Orders Medication Instructions Recorded Confirmed No Known Home Medications 06/02/17 06/02/17 - Allergies Allergies/Adverse Reactions: Allergies Allergy/AdvReac Type Severity Reaction Status Date / Time Penicillins Allergy Unknown Verified 07/30/20 14:05 - Living Situation Living Arrangement: reports: At home - Social History Does the pt smoke?: No Smoking Status: Never smoker Does the pt drink ETOH?: No Does the pt have substance abuse?: No - Family History Family history: reports: Non contributory PD ED PE NORMAL - Vitals Vital signs reviewed: Yes - General General: No acute distress, Other (alert, passively cooperative) - HEENT HEENT: Moist mucous membranes - Neck Neck: Supple, no meningeal sign - Cardiac Cardiac: RRR - Respiratory Respiratory: No respiratory distress, Clear bilaterally - Abdomen Abdomen: Soft, Non tender, Non distended - Derm Derm: Warm and dry - Neuro Neuro: Other (alert, not speaking, passively cooperative) - Psych Psych: Normal mood, Normal affect Results - Vitals Vitals: Vital Signs - 24 hr 07/30/20 07/30/20 13:37 19:29 Temperature 37.6 C 37.6 C Heart Rate 97 97 Respiratory 12 12 Rate Blood Pressure 125/62 125/62 O2 Saturation 100 100 Oxygen O2 Source Room air - EKG (time done) 1401 Rate: Rate (enter#) (94) Rhythm: NSR [place]: Normal Intervals: Normal [place] QRS: Normal Ischemia: Normal ST segments Compare to prior EKG: Unchanged from prior EKG - Labs Labs: Laboratory Tests 07/30/20 07/30/20 07/30/20 13:45 13:55 14:00 WBC 5.2 RBC 4.25 Hgb 12.4 Hct 38.2 MCV 89.9 MCH 29.2 MCHC 32.5 RDW 12.2 Plt Count 204 MPV 10.1 Neut # (Auto) 2.3 Lymph # (Auto) 2.3 [place] # (Auto) 0.4 Eos # (Auto) 0.2 Baso # (Auto) 0.0 Absolute Nucleated RBC 0.00 Nucleated RBC % 0.0 Sodium Potassium Chloride Carbon Dioxide Anion Gap BUN Creatinine Estimated GFR (MDRD) Glucose Calcium Total Bilirubin AST ALT Alkaline Phosphatase Total Protein Albumin Globulin Albumin/Globulin Ratio Lipase TSH Urine Color YELLOW Urine Clarity CLEAR Urine pH 6.0 Ur Specific [place] 1.025 Urine Protein NEGATIVE Urine Glucose (UA) NEGATIVE Urine Ketones NEGATIVE Urine Occult Blood NEGATIVE Urine Nitrite NEGATIVE Urine Bilirubin NEGATIVE Urine Urobilinogen 0.2 (NORMAL) Ur Leukocyte Esterase NEGATIVE Ur Microscopic Review NOT INDICATED Urine Culture Comments NOT INDICATED Urine HCG, Qual NEGATIVE Nasal Adenovirus (PCR) NOT DETECTED Nasal B. parapertussis DNA (PCR) NOT DETECTED Nasal Coronavir 229E PCR NOT DETECTED Nasal Coronavir HKU1 PCR NOT DETECTED Nasal Coronavir NL63 PCR NOT DETECTED Nasal Coronavir OC43 PCR NOT DETECTED Nasal Enterovir/Rhinovir PCR NOT DETECTED Nasal Influenza B PCR NOT DETECTED Nasal Influenza A PCR NOT DETECTED Nasal Parainfluen 1 PCR NOT DETECTED Nasal Parainfluen 2 PCR NOT DETECTED Nasal Parainfluen 3 PCR NOT DETECTED Nasal Parainfluen 4 PCR NOT DETECTED Nasal RSV (PCR) NOT DETECTED Nasal B.pertussis DNA PCR NOT DETECTED Nasal C.pneumoniae (PCR) NOT DETECTED [place] Human Metapneumo PCR NOT DETECTED Nasal M.pneumoniae (PCR) NOT DETECTED Nasal SARS-CoV-2 (PCR) NOT DETECTED Salicylates Urine Opiates Screen NEGATIVE Ur Oxycodone Screen NEGATIVE Urine Methadone Screen NEGATIVE Ur Propoxyphene Screen NEGATIVE Acetaminophen Ur Barbiturates Screen NEGATIVE Ur Tricyclics Screen NEGATIVE Ur Phencyclidine Scrn NEGATIVE Ur Amphetamine Screen NEGATIVE U Methamphetamines Scrn NEGATIVE U Benzodiazepines Scrn NEGATIVE Urine Cocaine Screen NEGATIVE U Cannabinoids Screen NEGATIVE Ethyl Alcohol 07/30/20 07/30/20 14:00 14:00 WBC RBC Hgb Hct MCV MCH MCHC RDW Plt Count MPV Neut # (Auto) Lymph # (Auto) [place] # (Auto) Eos # (Auto) Baso # (Auto) Absolute Nucleated RBC Nucleated RBC % Sodium 137 Potassium 3.2 L Chloride 102 Carbon Dioxide 23 Anion Gap 12.0 BUN 23 H Creatinine 0.6 Estimated GFR (MDRD) 105 Glucose 140 H Calcium 9.1 Total Bilirubin 0.7 AST 20 ALT 23 Alkaline Phosphatase 41 L Total Protein 6.6 L Albumin 4.3 Globulin 2.3 Albumin/Globulin Ratio 1.9 Lipase 39 TSH 0.69 Urine Color Urine Clarity Urine pH Ur Specific [place] Urine Protein Urine Glucose (UA) Urine Ketones Urine Occult Blood Urine Nitrite Urine Bilirubin Urine Urobilinogen Ur Leukocyte Esterase Ur Microscopic Review Urine Culture Comments Urine HCG, Qual Nasal Adenovirus (PCR) Nasal B. parapertussis DNA (PCR) Nasal Coronavir 229E PCR Nasal Coronavir HKU1 PCR Nasal Coronavir NL63 PCR Nasal Coronavir OC43 PCR Nasal Enterovir/Rhinovir PCR Nasal Influenza B PCR Nasal Influenza A PCR Nasal Parainfluen 1 PCR Nasal Parainfluen 2 PCR Nasal Parainfluen 3 PCR Nasal Parainfluen 4 PCR Nasal RSV (PCR) Nasal B.pertussis DNA PCR Nasal C.pneumoniae (PCR) Emmanuel Human Metapneumo PCR Nasal M.pneumoniae (PCR) Nasal SARS-CoV-2 (PCR) Salicylates < 6.0 Urine Opiates Screen Ur Oxycodone Screen Urine Methadone Screen Ur Propoxyphene Screen Acetaminophen < 10 L Ur Barbiturates Screen Ur Tricyclics Screen Ur Phencyclidine Scrn Ur Amphetamine Screen U Methamphetamines Scrn U Benzodiazepines Scrn Urine Cocaine Screen U Cannabinoids Screen Ethyl Alcohol < 5.0 PD MEDICAL DECISION MAKING - ED course Complexity details: reviewed results, re-evaluated patient, considered differential, d/w [employer] ebs consultant ED course: 50-year-old female with psychosis and what appears to be likely catatonic schizophrenia. She is minimally responsive to any stimuli here. She is medically clear for psychiatric care. She was placed on an involuntary hold by the DCR, Pat. A bed was found for her at [facility], behavioral health unit. Dr. Orosco graciously accepts in transfer at 2030. COBRA forms completed. This document was made in part using voice recognition software. While efforts are made to proofread this document, sound alike and grammatical errors may occur. Departure - Departure Disposition: 65 Psych Hosp/Unit DC/Xfer Clinical Impression: Psychosis Qualifiers: Psychosis type: schizophrenia Schizophrenia type: catatonic schizophrenia Qualified Code(s): F20.2 - Catatonic schizophrenia Schizophrenia Qualifiers: Schizophrenia type: catatonic schizophrenia Qualified Code(s): F20.2 - Catatonic schizophrenia Condition: Stable
[2020-07-30 14:06] LABS: MUDS CUTOFF CONCENTRATIONS CUTOFF CONC BELOW:
[2020-07-30 14:08] LABS: BASOPHILS % (AUTO) 0.8 %; EOSINOPHILS # (AUTO) 0.2 10^3/uL (0.0-0.7); EOSINOPHILS % (AUTO) 3.8 %; HCT - HEMATOCRIT 38.2 % (37.0-47.0); HGB - HEMOGLOBIN 12.4 g/dL (12.0-16.0); LYMPHOCYTES # (AUTO) 2.3 10^3/uL (1.5-3.5); LYMPHOCYTES % (AUTO) 44.1 %; MEAN CORPUSCULAR HEMOGLOBIN 29.2 pg (27.0-31.0); MEAN CORPUSCULAR HGB CONC 32.5 g/dL (32.0-36.0); MEAN CORPUSCULAR VOLUME 89.9 fL (81.0-99.0); MEAN PLATELET VOLUME 10.1 fL (7.9-10.8); MONOCYTES # (AUTO) 0.4 10^3/uL (0.0-1.0); MONOCYTES % (AUTO) 7.1 %; NEUTROPHILS # (AUTO) 2.3 10^3/uL (1.5-6.6); PLT - PLATELET COUNT 204 10^3/uL (130-450); RED BLOOD COUNT 4.25 10^6/uL (4.20-5.40); RED CELL DISTRIBUTION WIDTH 12.2 % (12.0-15.0); WHITE BLOOD COUNT 5.2 x10^3/uL (4.8-10.8)
[2020-07-30 14:13] LABS: BILIRUBIN,URINE NEGATIVE (NEGATIVE); GLUCOSE, URINE (UA) NEGATIVE (NEGATIVE); KETONES,URINE (UA) NEGATIVE (NEGATIVE); LEUKOCYTE ESTERASE, URINE NEGATIVE (NEGATIVE); NITRITE,URINE NEGATIVE (NEGATIVE); OCCULT BLOOD,URINE NEGATIVE (NEGATIVE); PROTEIN,URINE NEGATIVE (NEGATIVE); UROBILINOGEN,URINE 0.2 (NORMAL) E.U./dL (NORMAL)
[2020-07-30 14:15] LABS: CLARITY,URINE CLEAR (CLEAR); HCG UR QUAL NEGATIVE
[2020-07-30 14:22] LABS: AMPHETAMINE SCREEN,URINE NEGATIVE (NEGATIVE); BARBITURATE SCREEN,UR NEGATIVE (NEGATIVE); BENZODIAZEPINES SCREEN, URINE NEGATIVE (NEGATIVE); COCAINE SCREEN URINE NEGATIVE (NEGATIVE); METHADONE SCREEN, URINE NEGATIVE (NEGATIVE); METHAMPHETAMINES SCREEN, URINE NEGATIVE (NEGATIVE); OPIATE SCREEN, URINE NEGATIVE (NEGATIVE); OXYCODONE SCREEN, URINE NEGATIVE (NEGATIVE); PROPOXYPHENE SCREEN, URINE NEGATIVE (NEGATIVE); THC CANNABINOID SCREEN, URINE NEGATIVE (NEGATIVE); TRICYCLIC ANTIDEPRESSANT,URINE NEGATIVE (NEGATIVE)
[2020-07-30 14:23] LABS: ACETAMINOPHEN < 10 ug/mL (10-30); ALBUMIN 4.3 g/dL (3.2-5.5); ALBUMIN/GLOBULIN RATIO 1.9 (1.0-2.2); ALKALINE PHOSPHATASE 41 IU/L (42-121); ALT ALANINE AMINOTRANSFERASE 23 IU/L (10-60); AST ASPARTATE AMINOTRANSFERASE 20 IU/L (10-42); BILIRUBIN,TOTAL 0.7 mg/dL (0.2-1.0); BUN - BLOOD UREA NITROGEN 23 mg/dL (6-20); CALCIUM 9.1 mg/dL (8.5-10.3); CARBON DIOXIDE - CO2 23 mmol/L (21-32); CHLORIDE 102 mmol/L (101-111); CREATININE 0.6 mg/dL (0.4-1.0); ETOH - ETHANOL < 5.0 mg/dL; GFR - MDRD 105 (>89); GLUCOSE 140 mg/dL (70-100); LIPASE 39 U/L (22-51); POTASSIUM 3.2 mmol/L (3.5-5.0); SALICYLATE < 6.0 mg/dL; SODIUM 137 mmol/L (135-145); TOTAL PROTEIN 6.6 g/dL (6.7-8.2)
[2020-07-30 14:58] LABS: B. PARAPERTUSSIS- RESP PCR PAN NOT DETECTED; B. PERTUSSIS- RESP PCR PANEL NOT DETECTED; C. PNEUMONIAE- RESP PCR PANEL NOT DETECTED; CORONAVIRUS 229E-RESP PCR NOT DETECTED; CORONAVIRUS HKU1-RESP PCR NOT DETECTED; CORONAVIRUS NL63-RESP PCR NOT DETECTED; CORONAVIRUS OC43-RESP PCR NOT DETECTED; HUMAN METAPNEUMOVIRUS NOT DETECTED; INFLUENZA A- RESP PCR PANEL NOT DETECTED; INFLUENZA B - RESP PCR PANEL NOT DETECTED; M. PNEUMONIAE- RESP PCR PANEL NOT DETECTED; PARAINFLUENZA VIRUS 1 NOT DETECTED; PARAINFLUENZA VIRUS 2 NOT DETECTED; PARAINFLUENZA VIRUS 3 NOT DETECTED; PARAINFLUENZA VIRUS 4 NOT DETECTED; RHINOVIRUS/ENTEROVIRUS NOT DETECTED; RSV- RESP PCR PANEL NOT DETECTED; SARS-CoV-2 -RESP PCR PANEL NOT DETECTED
[2020-07-30 22:37] VITALS: BP 109/71
--- OUTSIDE RECORDS SUMMARY | 2020-08-05 01:03 | EXTERNAL MEDICAL SUMMARY RPT | Continuity of Care Document ---
:1970 Demographics Phone Unavailable Preferred Language Unknown Marital Status Unknown L[employer] Affiliation Unknown Race Unknown Ethnic Group Unknown Author Organization [facility] Address [address] [place] [address] Phone Social History date description facility [phone]
== END 2020-07-30 22:49 ==
LOC: ED 13:37
DX: F20.2 Catatonic schizophrenia (principal); I51.7 Cardiomegaly; Z20.822 Contact with and (suspected) exposure to COVID-19
CPT/HCPCS: 0202U; 36415; 80053; 80306; 80307; 80320; 80329; 81003; 81025; 83690; 84443; 85025; 93005; 99283; 99285; 81001; 87086

== ENCOUNTER 2022-01-24 09:12 | Emergency (ER) | payer MEDICAID ==
[2022-01-24 09:52] LABS: BASOPHILS % (AUTO) 0.9 %; EOSINOPHILS # (AUTO) 0.1 10^3/uL (0.0-0.7); EOSINOPHILS % (AUTO) 2.8 %; HCT - HEMATOCRIT 38.5 % (37.0-47.0); HGB - HEMOGLOBIN 12.6 g/dL (12.0-16.0); LYMPHOCYTES % (AUTO) 42.1 %; MEAN CORPUSCULAR HGB CONC 32.7 g/dL (32.0-36.0); MEAN CORPUSCULAR VOLUME 88.7 fL (81.0-99.0); MEAN PLATELET VOLUME 9.8 fL (7.9-10.8); MONOCYTES # (AUTO) 0.3 10^3/uL (0.0-1.0); MONOCYTES % (AUTO) 6.5 %; NEUTROPHILS # (AUTO) 2.2 10^3/uL (1.5-6.6); NEUTROPHILS % (AUTO) 47.5 %; PLT - PLATELET COUNT 215 10^3/uL (130-450); RED BLOOD COUNT 4.34 10^6/uL (4.20-5.40); RED CELL DISTRIBUTION WIDTH 12.1 % (12.0-15.0); WHITE BLOOD COUNT 4.6 x10^3/uL (4.8-10.8)
[2022-01-24 10:07] LABS: ACETAMINOPHEN < 10 ug/mL (10-30); ALBUMIN 4.4 g/dL (3.2-5.5); ALBUMIN/GLOBULIN RATIO 2.1 (1.0-2.2); ALKALINE PHOSPHATASE 44 IU/L (42-121); ALT ALANINE AMINOTRANSFERASE 21 IU/L (10-60); AST ASPARTATE AMINOTRANSFERASE 19 IU/L (10-42); BILIRUBIN,TOTAL 0.6 mg/dL (0.2-1.0); BUN - BLOOD UREA NITROGEN 22 mg/dL (6-20); CALCIUM 9.7 mg/dL (8.5-10.3); CARBON DIOXIDE - CO2 28 mmol/L (21-32); CHLORIDE 106 mmol/L (101-111); CREATININE 0.6 mg/dL (0.4-1.0); ETOH - ETHANOL < 5.0 mg/dL; GFR - MDRD 105 (>89); GLUCOSE 92 mg/dL (70-100); LIPASE 40 U/L (22-51); POTASSIUM 3.6 mmol/L (3.5-5.0); SALICYLATE < 6.0 mg/dL; SODIUM 142 mmol/L (135-145); TOTAL PROTEIN 6.5 g/dL (6.7-8.2)
--- NOTE | 2022-01-24 10:08 | ED Physician Documentation ---
PD HPI MHE - Stated complaint Stated Complaint: MHE - Chief complaint Chief Complaint: MHE - History obtained from History obtained from: Patient, Police - Additional information Additional information: Patient is a 51-year-old female with a history of schizophrenia brought in as a mental health evaluation. Per police, she was reportedly found walking in traffic and they were concerned for her safety. Patient is unsure why she is here. She states that she was walking around looking for jobs and going to give out her resume. She says that [place] for "personal reasons". She denies wanting to harm herself. Patient denies pain. Review of Systems Constitutional: denies: Fever Cardiac: denies: Chest pain / pressure Respiratory: denies: Dyspnea GI: denies: Abdominal Pain Musculoskeletal: denies: Back pain Neurologic: denies: Headache Psychiatric: denies: Suicidal PD PAST MEDICAL HISTORY - Past Medical History Past Medical History: Yes Cardiovascular: None Respiratory: None Endocrine/Autoimmune: None Psych: Schizophrenia - Present Medications Home Medications: Ambulatory Orders Medication Instructions Recorded Confirmed No Known Home Medications 06/02/17 06/02/17 - Allergies Allergies/Adverse Reactions: Allergies Allergy/AdvReac Type Severity Reaction Status Date / Time Penicillins Allergy Unknown Verified 01/24/22 09:23 - Social History Does the pt smoke?: No Smoking Status: Never smoker Does the pt drink ETOH?: No Does the pt have substance abuse?: No PD ED PE NORMAL - General General: Alert and oriented X 3, No acute distress, Well developed/nourished, Other (Dressed in multiple layers) - HEENT HEENT: Atraumatic, PERRL, EOMI, Moist mucous membranes, Pharynx benign, Other - Neck Neck: Supple, no meningeal sign, No bony TTP - Cardiac Cardiac: RRR, No murmur, Strong equal pulses - Respiratory Respiratory: No respiratory distress, Clear bilaterally - Abdomen Abdomen: Normal bowel sounds, Soft, Non tender, Non distended - Derm Derm: Warm and dry - Extremities Extremities: No calf tenderness / cord - Neuro Neuro: Alert and oriented X 3, No motor deficit, Normal speech Results - Vitals Vitals: Vital Signs - 24 hr 01/24/22 01/24/22 09:19 18:09 Temperature 36 C L Heart Rate 95 82 Respiratory 16 16 Rate Blood Pressure 125/56 L 100/50 L O2 Saturation 100 99 Oxygen O2 Source Room air - EKG (time done) 1631 Rate: Rate (enter#) (83) Rhythm: NSR [place]: Normal Intervals: No: Prolonged QT Ischemia: No: ST elevation c/w ischemia - Labs Labs: Laboratory Tests 01/24/22 01/24/22 01/24/22 09:47 09:47 09:47 WBC 4.6 L RBC 4.34 Hgb 12.6 Hct 38.5 MCV 88.7 MCH 29.0 MCHC 32.7 RDW 12.1 Plt Count 215 MPV 9.8 Neut # (Auto) 2.2 Lymph # (Auto) 2.0 [place] # (Auto) 0.3 Eos # (Auto) 0.1 Baso # (Auto) 0.0 Absolute Nucleated RBC 0.00 Nucleated RBC % 0.0 Sodium 142 Potassium 3.6 Chloride 106 Carbon Dioxide 28 Anion Gap 8.0 BUN 22 H Creatinine 0.6 Estimated GFR (MDRD) 105 Glucose 92 Calcium 9.7 Total Bilirubin 0.6 AST 19 ALT 21 Alkaline Phosphatase 44 Total Protein 6.5 L Albumin 4.4 Globulin 2.1 Albumin/Globulin Ratio 2.1 Lipase 40 TSH 1.24 Urine Color Urine Clarity Urine pH Ur Specific [place] Urine Protein Urine Glucose (UA) Urine Ketones Urine Occult Blood Urine Nitrite Urine Bilirubin Urine Urobilinogen Ur Leukocyte Esterase Ur Microscopic Review Urine Culture Comments Salicylates < 6.0 Urine Opiates Screen Ur Oxycodone Screen Urine Methadone Screen Ur Propoxyphene Screen Acetaminophen < 10 L Ur Barbiturates Screen Ur Tricyclics Screen Ur Phencyclidine Scrn Ur Amphetamine Screen U Methamphetamines Scrn U Benzodiazepines Scrn Urine Cocaine Screen U Cannabinoids Screen Ethyl Alcohol < 5.0 SARS-CoV-2 (PCR) 01/24/22 01/24/22 10:00 12:49 WBC RBC Hgb Hct MCV MCH MCHC RDW Plt Count MPV Neut # (Auto) Lymph # (Auto) [place] # (Auto) Eos # (Auto) Baso # (Auto) Absolute Nucleated RBC Nucleated RBC % Sodium Potassium Chloride Carbon Dioxide Anion Gap BUN Creatinine Estimated GFR (MDRD) Glucose Calcium Total Bilirubin AST ALT Alkaline Phosphatase Total Protein Albumin Globulin Albumin/Globulin Ratio Lipase TSH Urine Color YELLOW Urine Clarity CLEAR Urine pH 6.5 Ur Specific [place] 1.020 Urine Protein NEGATIVE Urine Glucose (UA) NEGATIVE Urine Ketones NEGATIVE Urine Occult Blood NEGATIVE Urine Nitrite NEGATIVE Urine Bilirubin NEGATIVE Urine Urobilinogen 0.2 (NORMAL) Ur Leukocyte Esterase NEGATIVE Ur Microscopic Review NOT INDICATED Urine Culture Comments NOT INDICATED Salicylates Urine Opiates Screen NEGATIVE Ur Oxycodone Screen NEGATIVE Urine Methadone Screen NEGATIVE Ur Propoxyphene Screen NEGATIVE Acetaminophen Ur Barbiturates Screen NEGATIVE Ur Tricyclics Screen NEGATIVE Ur Phencyclidine Scrn NEGATIVE Ur Amphetamine Screen NEGATIVE U Methamphetamines Scrn NEGATIVE U Benzodiazepines Scrn NEGATIVE Urine Cocaine Screen NEGATIVE U Cannabinoids Screen NEGATIVE Ethyl Alcohol SARS-CoV-2 (PCR) NOT DETECTED PD MEDICAL DECISION MAKING - ED course Complexity details: re-evaluated patient ED course: Pt brought in by velasquez's office, concern for pt's safety as she was wandering in traffic. Pt appears gravely disabled by her mental illness; DCR contacted. Medically cleared. Pt accepted to [facility]. Calm and cooperative here. 1413 - DCR has seen patient. Plan to Pursue involuntary hospitalization. Pt accepted at [facility]. Departure - Departure Disposition: 65 Psych Hosp/Unit DC/Xfer Clinical Impression: Acute psychosis Condition: Stable Discharge Date/Time: 01/24/22 19:54
[2022-01-24 13:04] LABS: MUDS CUTOFF CONCENTRATIONS CUTOFF CONC BELOW:
[2022-01-24 13:08] LABS: BILIRUBIN,URINE NEGATIVE (NEGATIVE); GLUCOSE, URINE (UA) NEGATIVE (NEGATIVE); KETONES,URINE (UA) NEGATIVE (NEGATIVE); LEUKOCYTE ESTERASE, URINE NEGATIVE (NEGATIVE); NITRITE,URINE NEGATIVE (NEGATIVE); OCCULT BLOOD,URINE NEGATIVE (NEGATIVE); PH,URINE 6.5 PH (5.0-7.5); PROTEIN,URINE NEGATIVE (NEGATIVE); UROBILINOGEN,URINE 0.2 (NORMAL) E.U./dL (NORMAL)
[2022-01-24 13:20] LABS: CLARITY,URINE CLEAR (CLEAR)
[2022-01-24 13:22] LABS: AMPHETAMINE SCREEN,URINE NEGATIVE (NEGATIVE); BARBITURATE SCREEN,UR NEGATIVE (NEGATIVE); BENZODIAZEPINES SCREEN, URINE NEGATIVE (NEGATIVE); COCAINE SCREEN URINE NEGATIVE (NEGATIVE); METHADONE SCREEN, URINE NEGATIVE (NEGATIVE); METHAMPHETAMINES SCREEN, URINE NEGATIVE (NEGATIVE); OPIATE SCREEN, URINE NEGATIVE (NEGATIVE); OXYCODONE SCREEN, URINE NEGATIVE (NEGATIVE); PROPOXYPHENE SCREEN, URINE NEGATIVE (NEGATIVE); THC CANNABINOID SCREEN, URINE NEGATIVE (NEGATIVE); TRICYCLIC ANTIDEPRESSANT,URINE NEGATIVE (NEGATIVE)
[2022-01-24 18:10] VITALS: BP 100/50
== END 2022-01-24 19:54 ==
LOC: EDUNIT# → ED 09:12
DX: F23 Brief psychotic disorder (principal); Z20.822 Contact with and (suspected) exposure to COVID-19
CPT/HCPCS: 36415; 80053; 80306; 80307; 80320; 80329; 81001; 81003; 83690; 84443; 85025; 87086; 93005; 99283; 99285

== ENCOUNTER 2022-09-15 12:32 | Emergency (ER) | payer MEDICAID ==
[2022-09-15 12:51] VITALS: BP 135/68
--- NOTE | 2022-09-15 12:57 | ED Physician Documentation ---
History of Present Illness - Stated complaint Stated Complaint: MHE - Additonal information Additional information: 52-year-old female who has a history of psychosis and schizophrenia was brought to the emergency department under an MAXIMINO by [facility] officers. Reportedly the patient was outside in and out of traffic. Her roommate/significant other had reported to the director mba's department that the patient has had increased psychiatric behaviors over the last several weeks. It is unclear if the patient is taking any medications. Patient has been seen multiple times in this ER under DCR and I TA events. On presentation to the emergency department the patient is wearing a hat and sunglasses. She is also dressed in very heavy garb and appropriate for the weather. She states to me that people do not understand that she simply evaluating her environment. She would like to speak to a crisis responder about the threats that she feels from other people but does not feel that she herself is a threat. She denies that she wants to harm herself or anybody else. Patient is aware of the month and year. She is aware that she was brought into the emergency department in [place]. She is declining Laboratory investigation by the emergency department. Review of Systems Unable to obtain: Uncooperative Constitutional: denies: Fever Psychiatric: reports: Other PD PAST MEDICAL HISTORY - Past Medical History Cardiovascular: None Respiratory: None Endocrine/Autoimmune: None Psych: Schizophrenia - Present Medications Home Medications: Ambulatory Orders Medication Instructions Recorded Confirmed No Known Home Medications 06/02/17 06/02/17 - Allergies Allergies/Adverse Reactions: Allergies Allergy/AdvReac Type Severity Reaction Status Date / Time Penicillins Allergy Unknown Verified 01/24/22 09:23 - Social History Does the pt smoke?: No Smoking Status: Never smoker Does the pt drink ETOH?: No Does the pt have substance abuse?: No PD ED PE NORMAL - General General: No acute distress. No: Well developed/nourished (Dressed and appropriately for the environment) - HEENT HEENT: Atraumatic, Moist mucous membranes - Neck Neck: Supple, no meningeal sign, No adenopathy - Cardiac Cardiac: RRR, No murmur - Respiratory Respiratory: No respiratory distress, Clear bilaterally - Abdomen Abdomen: Normal bowel sounds, Soft - Neuro Neuro: Alert and oriented X 3, nib adjuster 2-12 intact Eye Opening: Spontaneous Motor: Obeys Commands Verbal: Oriented GCS Score: 15 - Psych Psych: Other (Patient speaks with clenched teeth. Oriented to environment. Denies that she is a harm to herself. States she simply evaluating her environment. Repeatedly states that she has been offered employment at [employer]. Slow thoughtful conversation. Denies any internal stimuli auditory visual carter) Results - Vitals Vitals: Vital Signs - 24 hr 09/15/22 12:39 Temperature 98.9 C H Heart Rate 108 H Respiratory 18 Rate Blood Pressure 135/68 H O2 Saturation 99 Oxygen O2 Source Room air PD Medical Decision Making - ED course Complexity details: d/w patient ED course: 52-year-old female who by chart review has been seen in the ER for multiple mental health exams [facility] as her partner at home was concerned about increasing psychiatric and psychotic behaviors at home. She was found wandering near traffic. The patient was dressed warmer than we would expect for weather. However she did appear well- groomed and cared for. She was clear with this provider that she had no thoughts of self-harm. She did not want to be here. I do believe that she has a psychiatric d/o but I do not believe that she presents a danger to herself or others. Initially she was reportedly brought in under an MAXIMINO but once the stream control officer left, no MAXIMINO was delivered. We attempted multiple times asking the patient to allow us lab work and urinalysis in order to complete a mental health work-up that could likely include DCR but she politely declined each time stating she did not need it. She was very clear that she was simply exploring her world and did not feel she should have been brought into the emergency department. After period of time when she would not allow us to draw blood work she peacefully left the emergency department with no paperwork. [facility] were notified that she left the department. It should be clear that no formal MAXIMINO was placed as the paperwork was never delivered to the ER. Patient did leave AGAINST MEDICAL ADVICE. No paperwork was signed Departure - Departure Disposition: 07 Against Medical Advice Clinical Impression: Mental health disorder
== END 2022-09-15 13:42 | disposition left against medical advice (07) ==
LOC: ED 12:32
DX: Z04.6 Encounter for general psychiatric examination, requested by authority (principal); F99 Mental disorder, not otherwise specified; Z53.29 Procedure and treatment not carried out because of patient's decision for other reasons
CPT/HCPCS: 80053; 80307; 80320; 80329; 83690; 84443; 85025; 99283

== ENCOUNTER 2022-09-15 13:50 | Emergency (ER) | payer MEDICAID ==
[2022-09-15 14:04] VITALS: BP 133/68
--- NOTE | 2022-09-15 14:17 | ED Physician Documentation ---
History of Present Illness - Stated complaint Stated Complaint: MHE - Chief complaint Chief Complaint: MHE - Additonal information Additional information: 52-year-old female was returned to the emergency department by [facility] officers for concerns of threat to herself. She had been brought into the emergency department by [facility] office when she was found wandering on the streets. They felt that she was gravely disabled. Her caregiver had reported that she had had increasing psychiatric behavior over the last several weeks. On initial presentation to the emergency department within the last hour she was very clear with this provider she had no thoughts of harm to herself. She did not feel she need to be in the ER. She felt that she was just exploring her environment. The [facility] officer left before presenting formal MAXIMINO paperwork and when the patient declined lab work she was allowed to leave voluntarily AMA. Though she appears to having underlying psychiatric or psychosis she did not appear a threat to herself or others. Shortly after leaving the emergency department she was [place] the hospital at the local [place] when [facility] officers again made contact with her. They reported to us that she attempted to run into traffic and she was tackled to guarantee her safety and thus she is brought back. The patient is alert very calm. She has slow thoughtful speech. She states that she does not want to be here. She will not agree to allow lab work or urine to be obtained. She understands that at this time the DCR is going to be dispatch to evaluate her without lab and urine. Review of Systems Unable to obtain: Uncooperative PD PAST MEDICAL HISTORY - Past Medical History Cardiovascular: None Respiratory: None Endocrine/Autoimmune: None Psych: Schizophrenia - Present Medications Home Medications: Ambulatory Orders Medication Instructions Recorded Confirmed No Known Home Medications 06/02/17 06/02/17 - Allergies Allergies/Adverse Reactions: Allergies Allergy/AdvReac Type Severity Reaction Status Date / Time Penicillins Allergy Unknown Verified 01/24/22 09:23 - Social History Does the pt smoke?: No Smoking Status: Never smoker Does the pt drink ETOH?: No Does the pt have substance abuse?: No PD ED PE NORMAL - General General: Alert and oriented X 3, No acute distress. No: Well d eveloped/nourished (Dressed and appropriately for the weather) - HEENT HEENT: Atraumatic - Cardiac Cardiac: RRR - Respiratory Respiratory: Clear bilaterally - Neuro Neuro: Alert and oriented X 3, pipe tester 2-12 intact Eye Opening: Spontaneous Motor: Obeys Commands Verbal: Oriented GCS Score: 15 - Psych Psych: Other (Thoughtful slow speech. Denies AH VH. States she just wants to explore her surroundings. Denies thoughts of harm to herself or others) Results - Vitals Vitals: Vital Signs - 24 hr 09/15/22 09/15/22 13:59 14:03 Temperature 37.7 C Heart Rate 110 H Respiratory 16 16 Rate Blood Pressure 133/68 H O2 Saturation 98 Oxygen O2 Source Room air PD Medical Decision Making - ED course Complexity details: reviewed results, re-evaluated patient, d/w patient, d/w family, d/w coding consultant (Venita GARCÍA) ED course: 52-year-old female who has a longstanding history of schizophrenia and psychosis has been brought repeatedly to the emergency department today by [facility] officers for concerns of erratic behavior attempting to walk in and out of traffic. The patient reports to me that she simply exploring her environment and expresses no thoughts of self-harm. On both presentations to the emergency department she has been alert calm and cooperative. She has had thoughtful responses to the questions answered. However she has repeatedly declined to allow us laboratory blood draws. We did reach out to the designated crisis responder today. Initially they had agreed to come into the ER to evaluate the patient to determine if she was detainable. However ultimately they elected not to evaluate the patient because we are unable to force the patient to obtain lab screening against her will. Again the patient has been calm and cooperative throughout the ER stay. Subsequently her roommate and time clock mechanic Rojas has arrived to the emergency department. He was able to speak with our mental health social worker as well as the DCR today. Because were not unable to detain the patient [facility] and a crisis responder by the name of Leticia who works with [facility] office will reach out to the patient and her caregiver tomorrow. Though the patient does have some underlying psychosis, she has not exhibited dangerous behaviors Towards herself or others while here while in the emergency department and I am unable to forcefully detain the patient against her will, though it is Likely that she would benefit from further psychiatric care. Departure - Departure Disposition: Home, Self Care Clinical Impression: Acute psychosis Comments: Calliope You are brought to the emergency department today because there have been concerns about increasingly erratic behavior as witnessed by the [facility] officers as well as her partner. Leticia, who is a mental health crisis responder will be getting in contact with you and Rojas tomorrow to discuss how you are doing. If you ever feel unsafe, [id number] or have thoughts of self-harm please do not hesitate to reach out to mental health professionals, return to the ER or call 911
== END 2022-09-15 16:00 | disposition home or self-care (01) ==
LOC: ED 13:50
DX: Z04.6 Encounter for general psychiatric examination, requested by authority (principal); F29 Unspecified psychosis not due to a substance or known physiological condition
CPT/HCPCS: 80053; 80307; 80320; 80329; 83690; 84443; 85025

== ENCOUNTER 2023-02-20 06:25 | Emergency (ER) | payer MEDICAID ==
[2023-02-20] MEDS ORDERED: OLANZapine ODT 5 MG TABLET TL ONE (06:28)
[2023-02-20] MEDS ORDERED: HALOPERIDOL 5 MG/ML VIAL IM STA (06:42)
[2023-02-20] MEDS ORDERED: LORazepam 2 MG/ML VIAL IM STA (06:45)
[2023-02-20] MEDS ORDERED: diphenhydrAMINE INJ 50 MG/ML VIAL IM STA (06:46)
--- NOTE | 2023-02-20 07:01 | ED Physician Documentation ---
History of Present Illness - Stated complaint Stated Complaint: FIT - Chief complaint Chief Complaint: General - Additonal information Additional information: Patient 52-year-old female with known history of schizophrenia presenting to the emergency department accompanied by police. Well-known to law enforcement into the department. Was found in a disorganized state walking in traffic, mumbling incoherently. On arrival to the emergency department patient remains disorganized, struggling against police restraint, making tangential and nonsensical statements such as "the demons tried to steal my pens and take me to the [employer] [facility]". Patient unable to tell me her name, date of , where she is or why the police have brought her here. Further history is limited by her altered mentation and psychosis Review of Systems Unable to obtain: Other (Psychiatric disturbance) PD PAST MEDICAL HISTORY - Past Medical History Cardiovascular: None Respiratory: None Endocrine/Autoimmune: None Psych: Schizophrenia - Present Medications Home Medications: Ambulatory Orders Medication Instructions Recorded Confirmed No Known Home Medications 06/02/17 02/20/23 - Allergies Allergies/Adverse Reactions: Allergies Allergy/AdvReac Type Severity Reaction Status Date / Time Penicillins Allergy Unknown Verified 02/20/23 06:36 - Social History Does the pt smoke?: No Smoking Status: Never smoker Does the pt drink ETOH?: No Does the pt have substance abuse?: No PD ED PE NORMAL - Vitals Vital signs reviewed: Yes - General General: Alert and oriented X 3, Other (Patient malodorous, being held by 2 police officers with handcuffs in place. Struggling against restraint.) - HEENT HEENT: Other (There is a superficial abrasion above the left oriental orthodox.) - Respiratory Respiratory: No respiratory distress - Neuro Neuro: carpet mechanic 2-12 intact, No motor deficit, Other (Grossly nonfocal nonlateralizing neurologic exam) - Psych Psych: Other (Patient demonstrating aggressive labile affect, responds with inappropriate, tangential statements.) Results - Vitals Vitals: Vital Signs - 24 hr 02/20/23 02/20/23 02/20/23 06:31 06:45 07:00 Temperature 36.3 C L Heart Rate 51 L 87 87 Respiratory 26 H 14 14 Rate Blood Pressure 148/111 H 90/51 L 95/68 O2 Saturation 97 95 95 02/20/23 02/20/23 02/20/23 08:02 08:48 16:51 Temperature Heart Rate 84 74 63 Respiratory 15 14 13 Rate Blood Pressure 96/59 L 110/59 L 100/67 O2 Saturation 96 99 99 02/20/23 19:29 Temperature Heart Rate 65 Respiratory 16 Rate Blood Pressure O2 Saturation 100 Oxygen O2 Source Room air - Labs Labs: Laboratory Tests 02/20/23 02/20/23 02/20/23 07:15 07:15 07:15 WBC 6.0 RBC 4.17 L Hgb 12.1 Hct 37.0 MCV 88.7 MCH 29.0 MCHC 32.7 RDW 12.4 Plt Count 242 MPV 10.2 Neut # (Auto) 3.7 Lymph # (Auto) 1.8 [place] # (Auto) 0.4 Eos # (Auto) 0.1 Baso # (Auto) 0.1 Absolute Nucleated RBC 0.00 Nucleated RBC % 0.0 Sodium 139 Potassium 3.3 L Chloride 104 Carbon Dioxide 27 Anion Gap 8.0 BUN 23 H Creatinine 0.7 Estimated GFR (MDRD) 87 L Glucose 137 H Calcium 9.6 Magnesium 1.7 Total Bilirubin 0.7 AST 20 ALT 17 Alkaline Phosphatase 40 L Total Creatine Kinase Total Protein 6.8 Albumin 4.7 Globulin 2.1 Albumin/Globulin Ratio 2.2 Lipase 29 Urine Color DARK YELLOW Urine Clarity CLEAR Urine pH 5.5 Ur Specific [place] >=1.030 H Urine Protein NEGATIVE Urine Glucose (UA) NEGATIVE Urine Ketones NEGATIVE Urine Occult Blood NEGATIVE Urine Nitrite NEGATIVE Urine Bilirubin NEGATIVE Urine Urobilinogen 0.2 (NORMAL) Ur Leukocyte Esterase NEGATIVE Ur Microscopic Review NOT INDICATED Urine Culture Comments NOT INDICATED Salicylates < 1.5 Urine Opiates Screen NEGATIVE Ur Oxycodone Screen NEGATIVE Urine Methadone Screen NEGATIVE Ur Propoxyphene Screen NEGATIVE Acetaminophen < 0 L Ur Barbiturates Screen NEGATIVE Ur Tricyclics Screen NEGATIVE Ur Phencyclidine Scrn NEGATIVE Ur Amphetamine Screen NEGATIVE U Methamphetamines Scrn NEGATIVE U Benzodiazepines Scrn NEGATIVE Urine Cocaine Screen NEGATIVE U Cannabinoids Screen NEGATIVE Ethyl Alcohol < 10.0 SARS-CoV-2 (PCR) 02/20/23 02/20/23 07:15 07:15 WBC RBC Hgb Hct MCV MCH MCHC RDW Plt Count MPV Neut # (Auto) Lymph # (Auto) [place] # (Auto) Eos # (Auto) Baso # (Auto) Absolute Nucleated RBC Nucleated RBC % Sodium Potassium Chloride Carbon Dioxide Anion Gap BUN Creatinine Estimated GFR (MDRD) Glucose Calcium Magnesium Total Bilirubin AST ALT Alkaline Phosphatase Total Creatine Kinase 152 Total Protein Albumin Globulin Albumin/Globulin Ratio Lipase Urine Color Urine Clarity Urine pH Ur Specific [place] Urine Protein Urine Glucose (UA) Urine Ketones Urine Occult Blood Urine Nitrite Urine Bilirubin Urine Urobilinogen Ur Leukocyte Esterase Ur Microscopic Review Urine Culture Comments Salicylates Urine Opiates Screen Ur Oxycodone Screen Urine Methadone Screen Ur Propoxyphene Screen Acetaminophen Ur Barbiturates Screen Ur Tricyclics Screen Ur Phencyclidine Scrn Ur Amphetamine Screen U Methamphetamines Scrn U Benzodiazepines Scrn Urine Cocaine Screen U Cannabinoids Screen Ethyl Alcohol SARS-CoV-2 (PCR) NOT DETECTED PD Medical Decision Making - ED course Complexity details: re-evaluated patient, considered differential ED course: Patient 52-year-old female presenting to the emergency department brought in by police with acute psychosis and concern for grave disability. Was found walking in traffic. This is not a typical behavior for her and she is known to our department. On arrival to the emergency department she was struggling against to local area [employer] officers. Multiple attempts were made to calm and de-escalate her however she would respond to attempts at verbal de-escalation with somewhat nonsensical, but paranoid and hostile statements such as "you are one of the demons sent by the government". Given that her presentation represents either acute psychosis with grave disability versus a more organic cause for her altered mentation I determined it was necessary to provide chemical restraint in the form of 5 mg Haldol, 2 mg Ativan and 25 mg of intramuscular Benadryl. She was transitioned into psychiatric scrubs and very briefly placed in four-point restraints however these were discontinued approximately 10 minutes after they are initiated when she demonstrated calm sedation. She was arousable and physical exam demonstrated a superficial abrasion over her scalp but no other significant traumatic injuries. She otherwise had clear aeration in all lung leong and a benign abdominal exam. I have ordered comprehensive labs which are pending at this time. Patient will likely need to board here in the emergency department pending social work/DCR evaluation. We will be signing out to the oncoming physician, please see their documentation for further detail. Departure - Departure Clinical Impression: Recur manic, sev w/ psycho Condition: Stable Forms: PCP List
--- NOTE | 2023-02-20 07:03 | ED Physician Documentation ---
Restraint [id number] - Immediate Situation Face to Face Evaluation Date: 02/20/23 Face to Face Evaluation Time: 07:01 Restraint Classification: Violent, chemical w/ physical hold Restraint Type: Locked extremity - Patient's Reaction & Behaviors Safety: Non-compliant Verbal: Demanding, Screaming/Yelling, Swearing Harm: Potential harm to self, Potential harm to others, Verbalizes intent to harm Physical: Aggressive behavior, Fighting restraints - Behavioral Condition Attitude: Other (Unable to assess) Behavior: Agitated Orientation: Disoriented to all Mood: Labile, Angry - Evaluation System status changes from initial ED note: No changes Pertinent History/Illicit Drugs/Medications/Results: Past medical significant for paranoid and delusional schizophrenia - Plan Need to Continue or Terminate Violent or Chemical Restraint: Continue for patient's safety
[2023-02-20 07:43] LABS: BASOPHILS # (AUTO) 0.1 10^3/uL (0.0-0.1); BASOPHILS % (AUTO) 0.8 %; EOSINOPHILS # (AUTO) 0.1 10^3/uL (0.0-0.7); EOSINOPHILS % (AUTO) 0.8 %; HGB - HEMOGLOBIN 12.1 g/dL (12.0-16.0); LYMPHOCYTES # (AUTO) 1.8 10^3/uL (1.5-3.5); LYMPHOCYTES % (AUTO) 30.2 %; MEAN CORPUSCULAR HGB CONC 32.7 g/dL (32.0-36.0); MEAN CORPUSCULAR VOLUME 88.7 fL (81.0-99.0); MEAN PLATELET VOLUME 10.2 fL (7.9-10.8); MONOCYTES # (AUTO) 0.4 10^3/uL (0.0-1.0); MONOCYTES % (AUTO) 6.2 %; NEUTROPHILS # (AUTO) 3.7 10^3/uL (1.5-6.6); NEUTROPHILS % (AUTO) 61.8 %; PLT - PLATELET COUNT 242 10^3/uL (130-450); RED BLOOD COUNT 4.17 10^6/uL (4.20-5.40); RED CELL DISTRIBUTION WIDTH 12.4 % (12.0-15.0)
[2023-02-20 07:45] LABS: MUDS CUTOFF CONCENTRATIONS CUTOFF CONC BELOW:
[2023-02-20 07:47] LABS: ALBUMIN 4.7 g/dL (3.2-5.5); ALBUMIN/GLOBULIN RATIO 2.2 (1.0-2.2); ALKALINE PHOSPHATASE 40 IU/L (42-121); ALT ALANINE AMINOTRANSFERASE 17 IU/L (10-60); AST ASPARTATE AMINOTRANSFERASE 20 IU/L (10-42); BILIRUBIN,TOTAL 0.7 mg/dL (0.2-1.0); BUN - BLOOD UREA NITROGEN 23 mg/dL (6-20); CALCIUM 9.6 mg/dL (8.5-10.3); CARBON DIOXIDE - CO2 27 mmol/L (21-32); CHLORIDE 104 mmol/L (101-111); CREATININE 0.7 mg/dL (0.6-1.3); ETOH - ETHANOL < 10.0 mg/dL; GFR - MDRD 87 (>89); GLUCOSE 137 mg/dL (74-104); LIPASE 29 U/L (11-82); MAGNESIUM 1.7 mg/dL (1.7-2.3); POTASSIUM 3.3 mmol/L (3.5-4.5); SODIUM 139 mmol/L (135-145); TOTAL PROTEIN 6.8 g/dL (6.4-8.9)
[2023-02-20 07:51] LABS: ACETAMINOPHEN < 0 ug/mL (10-30)
[2023-02-20 07:52] LABS: SALICYLATE < 1.5 mg/dL
[2023-02-20 07:56] LABS: BILIRUBIN,URINE NEGATIVE (NEGATIVE); GLUCOSE, URINE (UA) NEGATIVE (NEGATIVE); KETONES,URINE (UA) NEGATIVE (NEGATIVE); LEUKOCYTE ESTERASE, URINE NEGATIVE (NEGATIVE); NITRITE,URINE NEGATIVE (NEGATIVE); OCCULT BLOOD,URINE NEGATIVE (NEGATIVE); PH,URINE 5.5 PH (5.0-7.5); PROTEIN,URINE NEGATIVE (NEGATIVE); UROBILINOGEN,URINE 0.2 (NORMAL) E.U./dL (NORMAL)
[2023-02-20 07:59] LABS: CLARITY,URINE CLEAR (CLEAR)
--- NOTE | 2023-02-20 08:04 | ED Physician Documentation ---
ED Addendum - Addendum Addendum: 02/20/23 08:03 On change of shift the patient is sleeping now. We were able to get blood draw and urine test from the patient. She is more calm and relaxed. She is out of restraints at this point. We will get labs and urine test and consult social work. It might be a DCR type of case. The police are filing an MAXIMINO forms. That report is pending at this time. 02/20/23 14:56 The patient still remains sleeping. She is arousable. Vital signs are normal and oxygenation is good. Social work attempted to talk with her but she is still somnolent. Labs from earlier this morning do not show any significant abnormality. Minimally low potassium at 3.3 and we can give an oral supplement when she is more awake. Otherwise the rest of the labs are good. Urine tox screen is without any substances of abuse. Presume an exacerbation of her bipolar disorder with manic behavior. Still awaiting social work versus DCR evaluation.
[2023-02-20 08:11] LABS: AMPHETAMINE SCREEN,URINE NEGATIVE (NEGATIVE); BARBITURATE SCREEN,UR NEGATIVE (NEGATIVE); BENZODIAZEPINES SCREEN, URINE NEGATIVE (NEGATIVE); COCAINE SCREEN URINE NEGATIVE (NEGATIVE); METHADONE SCREEN, URINE NEGATIVE (NEGATIVE); METHAMPHETAMINES SCREEN, URINE NEGATIVE (NEGATIVE); OPIATE SCREEN, URINE NEGATIVE (NEGATIVE); OXYCODONE SCREEN, URINE NEGATIVE (NEGATIVE); PROPOXYPHENE SCREEN, URINE NEGATIVE (NEGATIVE); THC CANNABINOID SCREEN, URINE NEGATIVE (NEGATIVE); TRICYCLIC ANTIDEPRESSANT,URINE NEGATIVE (NEGATIVE)
[2023-02-20 21:00] VITALS: BP 101/68; O2SAT 99
--- NOTE | 2023-02-20 23:34 | ED Physician Documentation ---
ED Addendum - Addendum Addendum: 02/20/23 23:33 Patient received a signout from outgoing physician, please see their do cumentation for further detail. Patient evaluated independently at bedside at approximately 2330 hrs. Found to be resting comfortably. Per DCR, patient to be detained. Awaiting placement at this time. Continue to monitor carefully. 02/21/23 02:11 Patient accepted to care facility in [place]. Appropriate paperwork completed. To be transferred at approximately 0900 hrs. 02/21/23 06:03 Departure - Departure Disposition: [facility] Psych Hosp/Unit DC/Xfer Clinical Impression: Recur manic, sev w/ psycho Condition: Stable Forms: PCP List
--- NOTE | 2023-02-21 09:08 | ED Physician Documentation ---
ED Addendum - Addendum Addendum: 02/21/23 09:07 The patient reportedly rested comfortably overnight. She did have some breakfast this morning. She is now sleeping. Intention is for her to transfer voluntarily. [facility] ambulance is expected at 10:00 this morning. Disposition: The patient is transferred to psychiatric facility in stable condition Diagnoses: 1. Acute psychosis and manic behavior 2. Bipolar disorder
== END 2023-02-21 11:07 ==
LOC: ED 06:25
DX: F31.2 Bipolar disorder, current episode manic severe with psychotic features (principal); Z20.822 Contact with and (suspected) exposure to COVID-19
CPT/HCPCS: 36415; 80053; 80306; 80307; 80320; 80329; 81003; 82550; 83690; 83735; 85025; 87635; 93005; 96372; 99284; 99285; A9270; J1200; J2060; 81001; 82553; 87086